=== PATIENT | male | born 1990 | race Caucasian/White ===

== ENCOUNTER 2022-06-29 13:38 | Outpatient (CLI) | payer OTHER, SELFPAY ==
[2022-06-29 20:00] LABS: Alanine Aminotransferase 44 U/L (6-50); Albumin Level 4.8 g/dL (3.5-5.1); Alkaline Phosphatase 68 U/L (38-126); Anion Gap 12 mmol/L (8-16); Aspartate Amino Transferase 65 U/L (17-59); Bilirubin,Total 0.7 mg/dL (0.2-1.3); Blood Urea Nitrogen 10 mg/dL (9-20); Calcium 9.2 mg/dL (8.4-10.2); Carbon Dioxide 27 mmol/L (22-30); Chloride 102 mmol/L (98-107); Cholesterol 225 mg/dL (0-200); Estimated Glomerular Filt Rate > 60; Glucose 125 mg/dL (65-110); HDL Direct 44 mg/dL; Potassium 4.2 mmol/L (3.4-5.0); Sodium 141 mmol/L (137-145); Triglycerides 109 mg/dL (<150)
[2022-06-29 20:11] LABS: LDL Cholesterol Direct 143 mg/dL
[2022-06-29 20:19] LABS: Basophils Percent Auto 0.5 % (0.2-1.2); Eosinophils Absolute Auto 0.1 K/mm3 (0-0.3); Eosinophils Percent Auto 0.8 % (0-4.4); Hemoglobin 15.7 g/dL (14.0-18.0); Immature Granulocyte Absolute 0.01 K/mm3 (0.00-0.031); Immature Granulocyte Percent A 0.2 % (0-0.5); Lymphocytes Absolute Auto 2.06 K/mm3 (0.9-3.2); Lymphocytes Percent Auto 33.4 % (18.3-44.2); Mean Corpuscular HGB Conc 33.4 g/dl (32-36); Mean Corpuscular Volume 83.8 fl (80-100); Mean Platelet Volume 11.5 fl (7.4-10.4); Monocytes Absolute Auto 0.4 K/mm3 (0.1-0.6); Monocytes Percent Auto 5.7 % (2.6-8.5); Neutrophils Absolute Auto 3.7 K/mm3 (1.3-6.7); Neutrophils Percent Auto 59.4 % (45.5-73.1); Platelet Count Result 247 k/mm3 (150-375); Red Blood Count 5.61 M/mm3 (4.6-6.20); Red Cell Distribution Width 12.6 % (11.5-14.5); White Blood Count 6.2 K/mm3 (4.5-10.0)
[2022-06-29 20:24] LABS: Vitamin D 25 Hydroxy 57.4 ng/mL
[2022-07-02 10:55] LABS: Testosterone Total 195 ng/dL (250-1100)
== END 2022-06-29 13:39 | disposition home or self-care (01) ==
LOC: ANHGOSHLAB 13:40
PROVIDERS: PCP Family Medicine; Visit Provider Nurse Practitioner
DX: Z00.00 Encounter for general adult medical examination without abnormal findings (principal); Z79.899 Other long term (current) drug therapy; R53.83 Other fatigue; E78.2 Mixed hyperlipidemia; E55.9 Vitamin D deficiency, unspecified; R73.9 Hyperglycemia, unspecified
CPT/HCPCS: 36415; 80053; 80061; 82306; 83036; 84403; 84443; 85025

== ENCOUNTER 2023-07-05 10:01 | Outpatient (CLI) | payer OTHER, SELFPAY ==
[2023-07-05 18:26] LABS: Basophils Percent Auto 0.6 % (0.2-1.2); Eosinophils Absolute Auto 0.1 K/mm3 (0-0.3); Eosinophils Percent Auto 0.8 % (0-4.4); Hematocrit 53.6 % (42.0-52.0); Hemoglobin 17.4 g/dL (14.0-18.0); Immature Granulocyte Absolute 0.02 K/mm3 (0.00-0.031); Immature Granulocyte Percent A 0.3 % (0-0.5); Lymphocytes Absolute Auto 1.65 K/mm3 (0.9-3.2); Lymphocytes Percent Auto 25.6 % (18.3-44.2); Mean Corpuscular HGB Conc 32.5 g/dl (32-36); Mean Corpuscular Hemoglobin 28.9 pg (26-34); Mean Platelet Volume 11.7 fl (7.4-10.4); Monocytes Absolute Auto 0.4 K/mm3 (0.1-0.6); Monocytes Percent Auto 6.8 % (2.6-8.5); Neutrophils Absolute Auto 4.2 K/mm3 (1.3-6.7); Neutrophils Percent Auto 65.9 % (45.5-73.1); Platelet Count Result 201 k/mm3 (150-375); Red Blood Count 6.02 M/mm3 (4.6-6.20); Red Cell Distribution Width 12.9 % (11.5-14.5); White Blood Count 6.4 K/mm3 (4.5-10.0)
[2023-07-05 19:25] LABS: Alanine Aminotransferase 37 U/L (6-50); Albumin Level 4.7 g/dL (3.5-5.1); Alkaline Phosphatase 57 U/L (38-126); Anion Gap 9 mmol/L (8-16); Aspartate Amino Transferase 47 U/L (17-59); Bilirubin,Total 0.9 mg/dL (0.2-1.3); Blood Urea Nitrogen 14 mg/dL (9-20); Calcium 9.3 mg/dL (8.4-10.2); Carbon Dioxide 29 mmol/L (22-30); Chloride 103 mmol/L (98-107); Cholesterol 239 mg/dL (0-200); Estimated Glomerular Filt Rate > 60; Glucose 86 mg/dL (65-110); HDL Direct 73 mg/dL; Potassium 4.3 mmol/L (3.4-5.0); Sodium 141 mmol/L (137-145); Triglycerides 123 mg/dL (<150)
[2023-07-05 19:36] LABS: LDL Cholesterol Direct 117 mg/dL
[2023-07-08 13:14] LABS: Vitamin D 1,25 (OH)2 Total 76 pg/mL (18-72); Vitamin D2 1,25 (OH)2 <8 pg/mL; Vitamin D3 1,25 (OH)2 76 pg/mL
[2023-07-08 13:51] LABS: Testosterone Total 415 ng/dL (250-1100)
== END 2023-07-05 10:02 | disposition home or self-care (01) ==
LOC: ANHGOSHLAB 10:02
PROVIDERS: PCP Family Medicine; Visit Provider Nurse Practitioner Family
DX: Z00.00 Encounter for general adult medical examination without abnormal findings (principal); E78.5 Hyperlipidemia, unspecified; E55.9 Vitamin D deficiency, unspecified; R79.89 Other specified abnormal findings of blood chemistry
CPT/HCPCS: 36415; 80053; 80061; 82652; 84402; 84403; 84443; 85025

== ENCOUNTER 2024-04-27 14:42 | Outpatient (CLI) | payer OTHER, SELFPAY ==
[2024-04-27 19:16] LABS: LDL Cholesterol Direct 215 mg/dL
[2024-04-27 19:35] LABS: HDL Direct 63 mg/dL; Triglycerides 123 mg/dL (<150)
[2024-04-27 21:36] LABS: Cholesterol 345 mg/dL (0-200)
== END 2024-04-27 14:43 | disposition home or self-care (01) ==
LOC: ANHGOSHLAB 14:44
PROVIDERS: PCP Family Medicine; Visit Provider Student in an Organized Health Care Education/Training Program
DX: E78.5 Hyperlipidemia, unspecified (principal)
CPT/HCPCS: 36415; 80061

== ENCOUNTER 2025-07-31 11:51 | Emergency (ER) | payer OTHER, SELFPAY ==
--- NOTE | ~2025-07-31 | XR_ITS ---
Examination: XR chest 2V Clinical History: cough 1 wk, rales on expiration, SOB, congestion, headache Comparison: None Technique: PA and Lateral Findings: Cardiomediastinal silhouette normal size and configuration. Lungs clear. Calcified granuloma left upper lobe. No acute bony abnormality. IMPRESSION: 1. No acute cardiopulmonary findings. Reviewed, dictated and finalized at location R.
[2025-07-31 12:01] VITALS: BP 117/85; PULSE 87; RESP 16; TEMP 36.7; O2SAT 99
--- NOTE | 2025-07-31 12:14 | ED.URI ---
HPI - URI/Sore Throat General Chief Complaint: Upper Respiratory Infection Stated Complaint: Cold Symptoms Time Seen by Provider: 07/31/25 12:14 Source: patient Mode of arrival: ambulatory Limitations: no limitations History of Present Illness HPI Narrative: 35 yo M presents with c/o cough for over a week. Reports SOB with exertion, chest congestion and rattling. Afebrile. +fatigue and bodyaches. Concerned for pneumonia. States daughter has had similar cough. Took abx and she is still not better. All systems reviewed and negative except as noted above. Related Data Allergies Allergy/AdvReac Type Severity Reaction Status Date / Time No Known Allergies Allergy Verified 07/31/25 11:57 PMFSH Past Medical History Medical History Seasonal allergies Generalized anxiety disorder Mixed dyslipidemia Family History Family History Father Family history of cardiovascular disease Grandparent Family history of cardiovascular disease Social History Social History Smoking status: Current some day smoker Tobacco type: cigarettes Additional smoking assessment comments: Patient reports smoking when drinking socially. Alcohol intake: current Drinks per week: 4 Alcohol use details: occasionally Substance use: never Substance use type: does not use Lack of Transportation: No Lack of Food: Never True Current Housing: I Have Housing Concerned About Future Housing: No Difficulty Paying Gas/Electric Bills: No Difficulty Paying for Meds: No Currently Unemployed: No Education: Bachelor's Degree Difficulty w/ Childcare or Family Care: No Living arrangements: with family Occupation/Education: occupation Additional occupation/education comments: Pharmaceutical Rep Gender identity (if verbalized by the patient): Male Sexual Orientation (if Verbalized by the Patient): Straight or Heterosexual Agree to blood products: Yes Comments At time of signature, agree with nursing past medical, surgical, social and family history. There is no relevant family history pertinent to the presenting complaint. Exam Narrative: GENERAL: This is a well-nourished, well-developed patient, in no apparent distress. HEAD: normocephalic, atraumatic. EYES: PERRL. Sclera clear/white. Vision is grossly intact. EARS: External ears normal, auditory canals clear and without drainage, TMs normal without perforation. Hearing grossly intact. NOSE: External nose normal with no obvious nasal discharge, nares without redness, no rhinorrhea. THROAT: Mucous membranes moist, posterior pharynx clear. NECK: Neck supple, non-tender without lymphadenopathy, masses or thyromegaly. CARDIOVASCULAR: Regular rate and rhythm without murmurs, gallops, or rubs. RESPIRATORY: Mild inspiratory wheeze throughout all lung traore, rhonchi and rales on expiration. No respiratory distress. Breath sounds equal bilaterally. SKIN: warm, Dry, intact with no suspicious lesions or rash, good texture and turgor. NEURO: awake, alert, and oriented to person, place and time. There were no obvious focal neurologic abnormalities. EXTREMITIES: No joint tenderness, effusion, or edema noted. Course Course Level of Care: Express Care Visit Reevaluation(s) Reevaluation #1: Reports no improvement after DuoNeb. Lung sounds remain the same. No respiratory distress. Vital Signs Vital signs: Vital Signs Temperature 36.7 C 07/31/25 12:01 Pulse Rate 87 07/31/25 12:01 Respiratory Rate 16 07/31/25 12:01 Blood Pressure 117/85 07/31/25 12:01 Pulse Oximetry 99 07/31/25 12:01 Temperature 36.7 C 07/31/25 12:01 Pulse Rate 87 07/31/25 12:01 Respiratory Rate 16 07/31/25 12:01 Blood Pressure 117/85 07/31/25 12:01 Pulse Oximetry 99 07/31/25 12:01 Reviewed MDM - URI/Sore Throat MDM Narrative Medical decision making narrative: Chest x-ray negative for pneumonia. Will treat with prednisone, albuterol inhaler for bronchitis. Patient voiced understanding. Patient well-appearing, nontoxic. Differential Diagnosis Differential diagnosis: Likely upper respiratory infection, sinusitis, viral infection and bronchitis Discharge Plan Discharge Clinical Impression: Acute bronchitis Patient Disposition: Home Condition: Stable Instructions: Acute Bronchitis (ED) Additional Instructions: Your chest x-ray was negative for pneumonia. Take medications as prescribed to treat bronchitis. Take [id number] Mucinex as directed on packaging. Bronchitis is viral and may cause a cough that can last up to 6 weeks. Drink at least 64 oz of water a day. See your doctor if symptoms are not improving. Patient Language: Yi Prescriptions: New albuterol sulfate 90 mcg/actuation HFA aerosol inhaler 2 puff inhalation Q4-6H PRN (Reason: shortness of breath or wheezing) Qty: 8.5 0RF (DME) Aerochamber Plus Z Stat Spacer See Rx Instructions .Route Qty: 1 0RF Rx Instructions: As directed benzonatate 200 mg capsule 200 mg PO TID PRN (Reason: cough) Qty: 20 0RF prednisone 20 mg tablet 40 mg PO DAILY 5 Days Qty: 10 0RF No Action dextroamphetamine-amphetamine [Adderall XR] 10 mg capsule,extended release 24hr 10 mg PO DAILY Qty: 30 0RF fluoxetine 40 mg capsule 40 mg PO DAILY Qty: 90 1RF rosuvastatin 40 mg tablet 40 mg PO QHS Qty: 90 1RF Follow-up/Referrals: PHYSICIAN,CASH REGISTER OPERATOR [Primary Care Provider, Internal Medicine] Time of Disposition: 13:34
[2025-07-31] MEDS: IPRATROPIUM 0.5 MG/ALBUTEROL SULFATE 2.5 MG (BASE) AMPUL.NEB 3 ML INHALATION (12:36)
== END 2025-07-31 13:38 | disposition home or self-care (01) ==
PROVIDERS: Emergency Provider Nurse Practitioner Family
DX: J20.9 Acute bronchitis, unspecified (principal); Z72.0 Tobacco use; E78.2 Mixed hyperlipidemia; F41.1 Generalized anxiety disorder
CPT/HCPCS: 71046; 94640; 99213; G0463

== ENCOUNTER 2025-09-19 08:53 | Outpatient (CLI) | payer OTHER, SELFPAY ==
--- OUTSIDE RECORDS SUMMARY | 2025-09-19 09:14 | XMS_ITS | Patient Health Record ---
Author Organization [facility] [employer] Address [address] [facility] [address] [place] [address] Care Team Providers Care Pet Sitting Name Role Phone Day Cortes [phone] Allergies No Known Allergies Reason For Referral No Information Medications Medication SIG (Take, Route, Frequency, Duration) Notes Start Date End Date Status Amphetamine-Dextroamphetami ne 10 MG Tablet 1 tablet Orally Twice a day Unknown Rosuvastatin Calcium 40 MG Tablet 1 tablet Orally Once a day Unknown FLUoxetine HCl 40 MG Capsule 1 capsule Orally Once a day Unknown Social History Tobacco Use: Social History Observation Description Date Details (start date - stop date) Light tobacco rosalba judgeker 10/03/2005 - NA Sex Assigned At : Social History Observation Description Sex Assigned At Male Social History Miscellaneous: Social Info Question Answer Notes Safety issues: Are there any firearms in the house? No Social History Social Info Question Answer Notes Household: Marital Status: Number of Adults in household: 1 Number of Children in Household: 3 Level of Education: Finished College Household: Social Info Question Answer Notes Household Marital status: Drug/Alcohol: Social Info Question Answer Notes Drugs Have you used drugs other than those for medical reasons in the past 12 months? Yes Methamphetamine? No Crack? No LSD? No Ecstacy? No Prescription opiates? No Marijuana? Yes Ketamine? No PCP? No Is there a minor (18 years or younger) at risk at home? No Are you still using? No AUDIT-C (Standard) Did you have a drink containi ng alcohol in the past year? Yes How often did you have six or more drinks on one occasion in the past year? 2 to 4 times a month (2 points) How many drinks did you have on a typical day when you were drinking in the past year? 5 or 6 drinks (2 points) How often did you have a drink containing alcohol in the past year? 2 to 3 times a week (3 points) Tobacco Use: Social Info Question Answer Notes Tobacco Control (Standard) Tobacco use: Light tobacco smoker When did you start smoking? 10/03/2005 Additional Details Category Social Info Options Details Miscellaneous: Occupation: [employer] Problems Problem Type SNOMED Code ICD Code Onset Dates Problem Status W/U Status Risk Notes Problem Mild recurrent major depression (61345624) Major depressive disorder, recurrent, mild (F33.0) Active confirmed Problem Severe recurrent major depression without psychotic features (90840851) Major depressive disorder, recurrent severe without psychotic features (F33.2) Active confirmed Problem Generalized anxiety disorder (67401261) Generalized anxiety disorder (F41.1) Active confirmed Problem Attention deficit hyperactivity disorder, predominantly inattentive type (13887905) Attention-defic it hyperactivity disorder, predominantly inattentive type (F90.0) Active confirmed Previously diagnosed Problem Feeling suicidal (433953213) Suicidal ideations (R45.851) Active confirmed Vital Signs Heart Rate 77 /min 05/24/2025 Blood pressure diastolic 68 mm Hg 05/24/2025 Blood pressure systolic 99 mm Hg 05/24/2025 Encounters Encounter Location Date Provider Diagnosis [employer] [address] [facility] [address] [place] [address] 05/24/2025 Daykady Paradaliter Major depressive disorder, recurrent severe without psychotic features F33.2 ; Generalized anxiety disorder F41.1 ; Attention-deficit hyperactivity disorder, predominantly inattentive type F90.0 and Suicidal ideations R45.851 [employer] [facility] [address] [place] [address] 05/29/2025 Daykady Paradaliter Major depressive disorder, recurrent severe without psychotic features F33.2 ; Generalized anxiety disorder F41.1 ; Attention-deficit hyperactivity disorder, predominantly inattentive type F90.0 and Suicidal ideations R45.851 [employer] [facility] [address] [place] [address] 06/04/2025 Daykady Paradaliter Major depressive disorder, recurrent severe without psychotic features F33.2 ; Generalized anxiety disorder F41.1 ; Attention-deficit hyperactivity disorder, predominantly inattentive type F90.0 and Problems in relationship with spouse or partner Z63.0 [employer] [address] [place] [place] [address] 06/10/2025 Day Karmaliter Generalized anxiety disorder F41.1 ; Major depressive disorder, recurrent severe without psychotic features F33.2 ; Attention-deficit hyperactivity disorder, predominantly inattentive type F90.0 and Problems in relationship with spouse or partner Z63.0 [facility], [facility] [address] [place] [address] 06/17/2025 Day Karmaliter Major depressive disorder, recurrent severe without psychotic features F33.2 ; Problems in relationship with spouse or partner Z63.0 ; Generalized anxiety disorder F41.1 and Attention-deficit hyperactivity disorder, predominantly inattentive type F90.0 [facility], [facility] [address] [address] [place] [address] 06/24/2025 Daykady Paradaliter Generalized anxiety disorder F41.1 ; Major depressive disorder, recurrent, mild F33.0 ; Attention-deficit hyperactivity disorder, predominantly inattentive type F90.0 and Problems in relationship with spouse or partner Z63.0 [facility], [facility] [address] [place] [address] 07/09/2025 Daykady Paradaliter Generalized anxiety disorder F41.1 ; Major depressive disorder, recurrent, mild F33.0 ; Problems in relationship with spouse or partner Z63.0 and Attention-deficit hyperactivity disorder, predominantly inattentive type F90.0 [facility], [facility] [address] [place] [address] 07/16/2025 Day Hinderliter Major depressive disorder, recurrent, mild F33.0 ; Generalized anxiety disorder F41.1 ; Attention-deficit hyperactivity disorder, predominantly inattentive type F90.0 and Problems in relationship with spouse or partner Z63.0 [facility], [facility] [address] [place] [address] 07/23/2025 Day Hinderliter Generalized anxiety disorder F41.1 ; Problems in relationship with spouse or partner Z63.0 ; Major depressive disorder, recurrent, mild F33.0 and Attention-deficit hyperactivity disorder, predominantly inattentive type F90.0 [facility], [facility] [address] [place] [address] 07/31/2025 Daykady Paradaliter Generalized anxiety disorder F41.1 ; Major depressive disorder, recurrent, mild F33.0 and Problems in relationship with spouse or partner Z63.0 [facility] [employer] [facility], [facility] [address] [place] [address] 08/07/2025 Day Karmaliter Generalized anxiety disorder F41.1 ; Major depressive disorder, recurrent, mild F33.0 and Attention-deficit hyperactivity disorder, predominantly inattentive type F90.0 [facility] [employer] [facility], [facility] [address] [place] [address] 08/13/2025 Day Hinderliter Attention-deficit hyperactivity disorder, predominantly inattentive type F90.0 ; Generalized anxiety disorder F41.1 ; Major depressive disorder, recurrent, mild F33.0 and Problems in relationship with spouse or partner Z63.0 [facility] [employer] [facility], [employer] [address] [place] [address] 08/26/2025 Day Karmaliter Generalized anxiety disorder F41.1 ; Attention-deficit hyperactivity disorder, predominantly inattentive type F90.0 and Major depressive disorder, recurrent, mild F33.0 [facility] [employer] [facility], [employer] [address] [place] [address] 09/03/2025 Day Hinderliter Attention-deficit hyperactivity disorder, predominantly inattentive type F90.0 ; Major depressive disorder, recurrent, mild F33.0 and Generalized anxiety disorder F41.1 [facility] [employer] [facility], [facility] [address] [place] [address] 09/10/2025 Day Hinderliter Generalized anxiety disorder F41.1 ; Major depressive disorder, recurrent, mild F33.0 and Attention-deficit hyperactivity disorder, predominantly inattentive type F90.0 [facility] [employer] [facility], [employer] [address] [place] [address] 09/17/2025 Day Hinderliter Attention-deficit hyperactivity disorder, predominantly inattentive type F90.0 ; Generalized anxiety disorder F41.1 and Major depressive disorder, recurrent, mild F33.0 [facility] [employer] [facility] [address] [place] [address] 07/03/2025 Day Hinderliter Assessments Encounter Date Diagnosis (ICD Code) Assessment Notes Treatment Notes Treatment Clinical Notes Section Notes 05/29/2025 Major depressive disorder, recurrent severe without psychotic features (ICD-10 - F33.2) Anxiety Assessment: Patient reports ongoing anxiety symptoms, describing them as really bad and feeling it physically in his body. He finds it destabilizing. Previous coping mechanisms like sports are no longer part of his routine. Patient has attempted breathing exercises, which help prevent escalation but do not fully alleviate anxiety. Physical exercise, specifically running on a treadmill, was reported as helpful in managing acute anxiety triggered by a recent encounter with his girlfriend. Client was also able to identify his mom, aunt, and a friend as support during this time. Plan: - Continue practicing breathing exercises for anxiety management - Encourage regular physical exercise, particularly cardiovascular activities like running, to manage anxiety and burn off excess adrenaline - Follow up with nurse practitioner tomorrow to discuss medication options Unresolved grief Assessment: Patient expresses need to address unresolved grief over his father's . He reports not having properly grieved due to focusing on comforting others and helping his mother with logistics. The recent anniversary of his father's has brought these feelings to the forefront. Patient identifies his father as a trusted confidant, and his absence is acutely felt during current life stressors. Plan: - Provide information on local grief support groups: - [facility]: offers individual and group therapy specifically for grief - [facility]: another organization offering grief support - Encourage patient to engage with grief support resources Relationship difficulties Assessment: Patient describes his current relationship with his girlfriend, who is with their child, as toxic. He reports constant criticism from her and feeling blamed for all conflicts. Recent separation occurred when girlfriend moved out for nearly two weeks. Patient expresses concern about potential personality disorder in his girlfriend but is unsure if he might be the source of issues. He reports walking on eggshells to avoid upsetting her and mentions her threats to leave if his behavior doesn't change. Patient has a history of divorce and is concerned about the impact on his children. Plan: - Encourage patient to discuss with girlfriend about her staying elsewhere temporarily to create space - Provide supportive counseling on co-parenting strategies and setting boundaries in relationships - Continue to explore and process relationship dynamics in future sessions 05/29/2025 Generalized anxiety disorder (ICD-10 - F41.1) Anxiety Assessment: Patient reports ongoing anxiety symptoms, describing them as really bad and feeling it physically in his body. He finds it destabilizing. Previous coping mechanisms like sports are no longer part of his routine. Patient has attempted breathing exercises, which help prevent escalation but do not fully alleviate anxiety. Physical exercise, specifically running on a treadmill, was reported as helpful in managing acute anxiety triggered by a recent encounter with his girlfriend. Client was also able to identify his mom, aunt, and a friend as support during this time. Plan: - Continue practicing breathing exercises for anxiety management - Encourage regular physical exercise, particularly cardiovascular activities like running, to manage anxiety and burn off excess adrenaline - Follow up with nurse practitioner tomorrow to discuss medication options Unresolved grief Assessment: Patient expresses need to address unresolved grief over his father's . He reports not having properly grieved due to focusing on comforting others and helping his mother with logistics. The recent anniversary of his father's has brought these feelings to the forefront. Patient identifies his father as a trusted confidant, and his absence is acutely felt during current life stressors. Plan: - Provide information on local grief support groups: - [facility]: offers individual and group therapy specifically for grief - [facility]: another organization offering grief support - Encourage patient to engage with grief support resources Relationship difficulties Assessment: Patient describes his current relationship with his girlfriend, who is with their child, as toxic. He reports constant criticism from her and feeling blamed for all conflicts. Recent separation occurred when girlfriend moved out for nearly two weeks. Patient expresses concern about potential personality disorder in his girlfriend but is unsure if he might be the source of issues. He reports walking on eggshells to avoid upsetting her and mentions her threats to leave if his behavior doesn't change. Patient has a history of divorce and is concerned about the impact on his children. Plan: - Encourage patient to discuss with girlfriend about her staying elsewhere temporarily to create space - Provide supportive counseling on co-parenting strategies and setting boundaries in relationships - Continue to explore and process relationship dynamics in future sessions 06/10/2025 Major depressive disorder, recurrent severe without psychotic features (ICD-10 - F33.2) Relationship Conflict Assessment: Darius reports ongoing conflict with his girlfriend, Ghada, primarily centered around his children's behavior and her expectations for change. The relationship demonstrates a pattern of instability over the past 1.5-2 years, with periods of harmony followed by threats of separation. Ghada's has intensified the conflict, as she expresses concerns about exposing a to the perceived chaos of Darius's children. Darius feels his girlfriend's expectations may be unrealistic and her approach to addressing issues is often critical and threatening. This situation is causing significant stress and contributing to Darius's feelings of being overwhelmed. Plan: - Explore setting healthy boundaries within the relationship - Discuss strategies for effective communication with partner about parenting concerns - Consider couples counseling to address relationship issues and prepare for co-parenting Parenting Challenges Assessment: Darius is experiencing some difficulties managing his children's behavior, particularly with his 9-year-old daughter who is exhibiting defiance and anger issues. He has implemented a point system for discipline but is facing criticism from his girlfriend regarding the effectiveness of his parenting approach. Darius's 12-year-old son is also described as forgetful and defiant, with a prescription medication regimen in place for ADHD. Darius expresses a desire to avoid harsh disciplinary tactics, recognizing their potential to increase anxiety in his children. He acknowledges feeling overwhelmed by the multiple demands of parenting and the conflicting expectations from his girlfriend. Plan: - Continue implementing and refining the point system for behavior management - Explore alternative parenting strategies that align with Darius's values and address children's needs - Provide education on age-appropriate behavior and developmental stages - Discuss ways to manage multiple demands and reduce feelings of being overwhelmed Emotional Regulation and Stress Management Assessment: Darius reports feeling frequently overwhelmed, particularly when faced with multiple simultaneous demands from his children, girlfriend, and others. He describes experiencing a gamez-zv-rozefd response in these situations, leading to raised voice and increased stress. Darius notes a alejandre contrast between his emotional state during a recent positive experience in [place] and his typical home environment. He has insight into his reactions and recognizes the need for better coping strategies. There is a possibility that his ADHD diagnosis may contribute to his feelings of being overstimulated and overwhelmed. Plan: - Teach and practice stress reduction techniques - Explore strategies for managing overstimulation and multiple demands - Discuss the potential impact of ADHD on emotional regulation and explore coping mechanisms - Encourage identification and cultivation of positive environmental factors Financial Stressors Assessment: Darius is experiencing financial stress related to alimony payments, property sale, and changing income. 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 Darius is anticipating the sale of a property to alleviate some financial pressure, allowing him to pay off his ex-'s loan. He expresses a need to return to court to address the alimony situation. These financial concerns are contributing to his overall stress and feelings of being overwhelmed. Plan: - Assist in prioritizing financial obligations and creating a manageable plan - Provide support in preparing for court appearance regarding alimony adjustment - Explore coping strategies for managing financial stress - Consider referral to financial counseling or legal services if needed 06/10/2025 Generalized anxiety disorder (ICD-10 - F41.1) Relationship Conflict Assessment: Darius reports ongoing conflict with his girlfriend, Ghada, primarily centered around his children's behavior and her expectations for change. The relationship demonstrates a pattern of instability over the past 1.5-2 years, with periods of harmony followed by threats of separation. Ghada's has intensified the conflict, as she expresses concerns about exposing a to the perceived chaos of Darius's children. Darius feels his girlfriend's expectations may be unrealistic and her approach to addressing issues is often critical and threatening. This situation is causing significant stress and contributing to Darius's feelings of being overwhelmed. Plan: - Explore setting healthy boundaries within the relationship - Discuss strategies for effective communication with partner about parenting concerns - Consider couples counseling to address relationship issues and prepare for co-parenting Parenting Challenges Assessment: Darius is experiencing some difficulties managing his children's behavior, particularly with his 9-year-old daughter who is exhibiting defiance and anger issues. He has implemented a point system for discipline but is facing criticism from his girlfriend regarding the effectiveness of his parenting approach. Darius's 12-year-old son is also described as forgetful and defiant, with a prescription medication regimen in place for ADHD. Darius expresses a desire to avoid harsh disciplinary tactics, recognizing their potential to increase anxiety in his children. He acknowledges feeling overwhelmed by the multiple demands of parenting and the conflicting expectations from his girlfriend. Plan: - Continue implementing and refining the point system for behavior management - Explore alternative parenting strategies that align with Darius's values and address children's needs - Provide education on age-appropriate behavior and developmental stages - Discuss ways to manage multiple demands and reduce feelings of being overwhelmed Emotional Regulation and Stress Management Assessment: Darius reports feeling frequently overwhelmed, particularly when faced with multiple simultaneous demands from his children, girlfriend, and others. He describes experiencing a oppzk-ra-rgzllw response in these situations, leading to raised voice and increased stress. Darius notes a alejandre contrast between his emotional state during a recent positive experience in [place] and his typical home environment. He has insight into his reactions and recognizes the need for better coping strategies. There is a possibility that his ADHD diagnosis may contribute to his feelings of being overstimulated and overwhelmed. Plan: - Teach and practice stress reduction techniques - Explore strategies for managing overstimulation and multiple demands - Discuss the potential impact of ADHD on emotional regulation and explore coping mechanisms - Encourage identification and cultivation of positive environmental factors Financial Stressors Assessment: Darius is experiencing financial stress related to alimony payments, property sale, and changing income. 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 Darius is anticipating the sale of a property to alleviate some financial pressure, allowing him to pay off his ex-'s loan. He expresses a need to return to court to address the alimony situation. These financial concerns are contributing to his overall stress and feelings of being overwhelmed. Plan: - Assist in prioritizing financial obligations and creating a manageable plan - Provide support in preparing for court appearance regarding alimony adjustment - Explore coping strategies for managing financial stress - Consider referral to financial counseling or legal services if needed 06/24/2025 Major depressive disorder, recurrent, mild (ICD-10 - F33.0) Emotional dysregulation and anger management Assessment: Darius reports living in a prolonged state of ifrlh-xe-aweqor, struggling to regulate between stress and calm, particularly in relationships. He acknowledges taking out stress on those closest to him, which has affected his past marriage and current relationships. Darius's difficulty in managing stress and emotions appears to be impacting multiple areas of his life, including parenting and romantic relationships. Plan: - Implement TIP (Temperature, Intense exercise, Paced breathing, Paired muscle relaxation) technique to shift from lzyzd-xf-pwziqq to bdeq-yif-zzhkep state - Encourage use of the dive reflex (holding breath with cold stimulus) to slow heart rate and blood pressure - Explore possibility of joining a bicycle club for consistent, intense physical activity - Practice grounding techniques: - 5-4-3-2-1 method using all five senses - Mental exercises (e.g., counting backwards, spelling name backwards) - Body awareness exercises - Physical grounding (e.g., walking barefoot on grass) - Utilize laughter as a relaxation technique Time management and task overwhelm (possibly related to ADHD) Assessment: Darius reports significant difficulties with time management, often taking on more tasks than he can handle, leading to feelings of being overwhelmed and burnt out. He struggles with maintaining schedules and completing basic tasks, such as cleaning his car. Darius mentions a previous ADD diagnosis and notes that medication initially helped. His current symptoms, including difficulty initiating tasks and managing multiple responsibilities, are consistent with executive function challenges often associated with ADHD. These difficulties are impacting his work, personal life, and ability to care for his children effectively. Plan: - Implement pacing technique: 60 minutes of work followed by 10-15 minute breaks, with longer breaks after four cycles - Encourage use of timers to manage work periods and breaks - Recommend planning by time allocation rather than task completion to reduce overwhelm - Suggest using a random number generator to select tasks from a list to overcome decision paralysis - Advise setting phone to Do Not Disturb mode during focused work periods, with exceptions for emergency contacts - Start with scheduling two focused work periods per day (one morning, one afternoon) and gradually increase as tolerated - Explore the use of a calendar system for improved time management and task organization Relationship and living situation adjustment Assessment: Darius reports recent changes in his living situation, with his girlfriend deciding to move out due to the chaotic environment of living together with three children. They plan to continue dating while living separately, hoping this step back will allow them to work on individual issues. This adjustment reflects ongoing challenges in Darius's interpersonal relationships, likely influenced by his emotional regulation difficulties and time management struggles. Plan: - Support Darius in adapting to the new living arrangement and relationship dynamic - Encourage open communication with girlfriend about expectations and boundaries in the new situation - Explore strategies for maintaining connection while living separately (e.g., scheduled date nights, regular check-ins) - Continue to address underlying emotional regulation and time management issues to improve relationship functioning 06/24/2025 Generalized anxiety disorder (ICD-10 - F41.1) Emotional dysregulation and anger management Assessment: Darius reports living in a prolonged state of [id number], struggling to regulate between stress and calm, particularly in relationships. He acknowledges taking out stress on those closest to him, which has affected his past marriage and current relationships. Darius's difficulty in managing stress and emotions appears to be impacting multiple areas of his life, including parenting and romantic relationships. Plan: - Implement TIP (Temperature, Intense exercise, Paced breathing, Paired muscle relaxation) technique to shift from [id number] to [id number] state - Encourage use of the dive reflex (holding breath with cold stimulus) to slow heart rate and blood pressure - Explore possibility of joining a bicycle club for consistent, intense physical activity - Practice grounding techniques: - 5-4-3-2-1 method using all five senses - Mental exercises (e.g., counting backwards, spelling name backwards) - Body awareness exercises - Physical grounding (e.g., walking barefoot on grass) - Utilize laughter as a relaxation technique Time management and task overwhelm (possibly related to ADHD) Assessment: Darius reports significant difficulties with time management, often taking on more tasks than he can handle, leading to feelings of being overwhelmed and burnt out. He struggles with maintaining schedules and completing basic tasks, such as cleaning his car. Darius mentions a previous ADD diagnosis and notes that medication initially helped. His current symptoms, including difficulty initiating tasks and managing multiple responsibilities, are consistent with executive function challenges often associated with ADHD. These difficulties are impacting his work, personal life, and ability to care for his children effectively. Plan: - Implement pacing technique: 60 minutes of work followed by 10-15 minute breaks, with longer breaks after four cycles - Encourage use of timers to manage work periods and breaks - Recommend planning by time allocation rather than task completion to reduce overwhelm - Suggest using a random number generator to select tasks from a list to overcome decision paralysis - Advise setting phone to Do Not Disturb mode during focused work periods, with exceptions for emergency contacts - Start with scheduling two focused work periods per day (one morning, one afternoon) and gradually increase as tolerated - Explore the use of a calendar system for improved time management and task organization Relationship and living situation adjustment Assessment: Darius reports recent changes in his living situation, with his girlfriend deciding to move out due to the chaotic environment of living together with three children. They plan to continue dating while living separately, hoping this step back will allow them to work on individual issues. This adjustment reflects ongoing challenges in Darius's interpersonal relationships, likely influenced by his emotional regulation difficulties and time management struggles. Plan: - Support Darius in adapting to the new living arrangement and relationship dynamic - Encourage open communication with girlfriend about expectations and boundaries in the new situation - Explore strategies for maintaining connection while living separately (e.g., scheduled date nights, regular check-ins) - Continue to address underlying emotional regulation and time management issues to improve relationship functioning 07/16/2025 Major depressive disorder, recurrent, mild (ICD-10 - F33.0) Emotional dysregulation Assessment: Patient reports significant improvement in emotional regulation since beginning treatment, identifying this as his biggest issue. He has a history of jealousy problems and difficulty controlling emotions in relationships, which has been a pattern across past relationships including his marriage. He describes episodes where overwhelming thoughts require him to lie down due to feeling depressed. Patient demonstrates insight into learned patterns from parents and expresses concern about modeling these behaviors for his children, who witnessed ugly things during his divorce when stability was disrupted. Plan: - Continue current therapeutic interventions for emotional regulation - Patient to write down and bring in any thoughts he questions as realistic for discussion in session Relationship difficulties Assessment: Patient is experiencing significant relationship distress with girlfriend Ghada, who has moved out citing his home as not being a calm environment and is not communicating with him. She prevented him from attending a recent baby appointment after becoming upset that his daughter came down at night and he fell asleep while getting her back to sleep. Patient's mother has expressed concern that this relationship is negatively impacting his self-esteem and confidence. Patient describes Ghada as having mixed attachment patterns - sometimes needing constant contact but avoiding problems, especially when at fault, potentially disorganized attachment. Patient appears to have secure attachment from being raised by loving parents. Plan: - Continue exploring relationship dynamics and attachment patterns in therapy Low self-esteem Assessment: Patient reports struggling with self-worth tied to relationships, experiencing an identity crisis after divorce when he lost his identity as a with children in a nuclear family structure. He is the first in his family to divorce, having grown up with parents who stayed together until father's . Patient expresses worry that something's wrong with me and questions his ability at long-term relationships since he couldn't keep a marriage together. He experiences particular difficulty when alone without his children. Previous therapy addressed trust and jealousy issues related to his divorce, but these concerns have resurfaced. Plan: - Continue addressing cognitive distortions related to self-worth and relationship capabilities - Explore challenging negative thought patterns when they arise ADHD management Assessment: Patient has been successfully implementing a 60-minute focused work strategy, though he reports losing focus on subsequent attempts and has adapted by working in 25-minute intervals with 5-minute breaks. He finds manual labor therapeutic as it keeps him focused on one task at a time. Patient acknowledges that having ADHD affects his perception of what is realistic versus unrealistic expectations. Plan: - Continue 60-minute time-based work strategy with flexibility to adjust to 25-minute intervals as needed - Encourage pacing based on time rather than tasks - Continue once to twice daily implementation of focused work periods 07/16/2025 Generalized anxiety disorder (ICD-10 - F41.1) Emotional dysregulation Assessment: Patient reports significant improvement in emotional regulation since beginning treatment, identifying this as his biggest issue. He has a history of jealousy problems and difficulty controlling emotions in relationships, which has been a pattern across past relationships including his marriage. He describes episodes where overwhelming thoughts require him to lie down due to feeling depressed. Patient demonstrates insight into learned patterns from parents and expresses concern about modeling these behaviors for his children, who witnessed ugly things during his divorce when stability was disrupted. Plan: - Continue current therapeutic interventions for emotional regulation - Patient to write down and bring in any thoughts he questions as realistic for discussion in session Relationship difficulties Assessment: Patient is experiencing significant relationship distress with girlfriend Ghada, who has moved out citing his home as not being a calm environment and is not communicating with him. She prevented him from attending a recent baby appointment after becoming upset that his daughter came down at night and he fell asleep while getting her back to sleep. Patient's mother has expressed concern that this relationship is negatively impacting his self-esteem and confidence. Patient describes Ghada as having mixed attachment patterns - sometimes needing constant contact but avoiding problems, especially when at fault, potentially disorganized attachment. Patient appears to have secure attachment from being raised by loving parents. Plan: - Continue exploring relationship dynamics and attachment patterns in therapy Low self-esteem Assessment: Patient reports struggling with self-worth tied to relationships, experiencing an identity crisis after divorce when he lost his identity as a with children in a nuclear family structure. He is the first in his family to divorce, having grown up with parents who stayed together until father's . Patient expresses worry that something's wrong with me and questions his ability at long-term relationships since he couldn't keep a marriage together. He experiences particular difficulty when alone without his children. Previous therapy addressed trust and jealousy issues related to his divorce, but these concerns have resurfaced. Plan: - Continue addressing cognitive distortions related to self-worth and relationship capabilities - Explore challenging negative thought patterns when they arise ADHD management Assessment: Patient has been successfully implementing a 60-minute focused work strategy, though he reports losing focus on subsequent attempts and has adapted by working in 25-minute intervals with 5-minute breaks. He finds manual labor therapeutic as it keeps him focused on one task at a time. Patient acknowledges that having ADHD affects his perception of what is realistic versus unrealistic expectations. Plan: - Continue 60-minute time-based work strategy with flexibility to adjust to 25-minute intervals as needed - Encourage pacing based on time rather than tasks - Continue once to twice daily implementation of focused work periods 07/09/2025 Major depressive disorder, recurrent, mild (ICD-10 - F33.0) Relationship Stress Assessment: Darius reports ongoing relationship difficulties with his girlfriend, particularly surrounding co-parenting issues and emotional regulation. He describes feeling unsafe in the relationship, often worrying about being in trouble. A recent incident involving comforting his 9-year-old daughter led to conflict with his girlfriend, who subsequently blocked him from attending an OB appointment. Darius expresses concern about the impact of this stress on his overall well-being and ability to function in various life roles. The pattern of intense positive and negative periods in the relationship suggests potential emotional instability or difficulty with conflict resolution. Plan: - Explore healthy relationship dynamics and boundary-setting strategies - Discuss options for addressing recurring relationship conflicts, including potential couples therapy - Encourage continued use of emotional regulation techniques learned in previous sessions - Consider implementing a worry time technique to manage anxiety related to relationship issues Anxiety and Emotional Regulation Assessment: Darius reports ongoing high anxiety that impacts various aspects of his life, including work performance and personal relationships. He has been utilizing emotional regulation techniques learned in therapy, including ice cube grounding and deep breathing exercises. Darius also mentions finding a book on resetting the nervous system helpful. He is currently taking fluoxetine (SSRI) but feels it may not be adequately addressing his anxiety symptoms. Darius demonstrates insight into his anxiety patterns and is actively seeking ways to manage his symptoms. Plan: - Continue practicing emotional regulation techniques, including TIP skills and Kris mind concept from DBT - Encourage regular exercise and physical activity as a means of anxiety management - Discuss potential medication adjustments or alternatives with prescribing physician - Introduce defusion techniques, such as the movie theater visualization - Reinforce the importance of self-care and setting boundaries to manage anxiety in various life roles Time Management and ADHD Symptoms Assessment: Darius continues to struggle with time management and task completion, which he attributes to feeling overwhelmed and possibly related to ADHD symptoms. He reports difficulty adhering to previously discussed time management strategies, such as pacing himself and using timers. Darius also mentions challenges with sleep patterns and morning routines, which may be exacerbating his time management issues. Plan: - Revisit and modify time management strategies to better suit Darius's needs and lifestyle - Explore ADHD-specific coping strategies and organizational tools - Discuss establishing a consistent sleep schedule and morning routine - Encourage Darius to start with small, achievable goals in implementing new time management techniques 07/09/2025 Generalized anxiety disorder (ICD-10 - F41.1) Relationship Stress Assessment: Darius reports ongoing relationship difficulties with his girlfriend, particularly surrounding co-parenting issues and emotional regulation. He describes feeling unsafe in the relationship, often worrying about being in trouble. A recent incident involving comforting his 9-year-old daughter led to conflict with his girlfriend, who subsequently blocked him from attending an OB appointment. Darius expresses concern about the impact of this stress on his overall well-being and ability to function in various life roles. The pattern of intense positive and negative periods in the relationship suggests potential emotional instability or difficulty with conflict resolution. Plan: - Explore healthy relationship dynamics and boundary-setting strategies - Discuss options for addressing recurring relationship conflicts, including potential couples therapy - Encourage continued use of emotional regulation techniques learned in previous sessions - Consider implementing a worry time technique to manage anxiety related to relationship issues Anxiety and Emotional Regulation Assessment: Darius reports ongoing high anxiety that impacts various aspects of his life, including work performance and personal relationships. He has been utilizing emotional regulation techniques learned in therapy, including ice cube grounding and deep breathing exercises. Darius also mentions finding a book on resetting the nervous system helpful. He is currently taking fluoxetine (SSRI) but feels it may not be adequately addressing his anxiety symptoms. Darius demonstrates insight into his anxiety patterns and is actively seeking ways to manage his symptoms. Plan: - Continue practicing emotional regulation techniques, including TIP skills and Kris mind concept from DBT - Encourage regular exercise and physical activity as a means of anxiety management - Discuss potential medication adjustments or alternatives with prescribing physician - Introduce defusion techniques, such as the movie theater visualization - Reinforce the importance of self-care and setting boundaries to manage anxiety in various life roles Time Management and ADHD Symptoms Assessment: Darius continues to struggle with time management and task completion, which he attributes to feeling overwhelmed and possibly related to ADHD symptoms. He reports difficulty adhering to previously discussed time management strategies, such as pacing himself and using timers. Darius also mentions challenges with sleep patterns and morning routines, which may be exacerbating his time management issues. Plan: - Revisit and modify time management strategies to better suit Darius's needs and lifestyle - Explore ADHD-specific coping strategies and organizational tools - Discuss establishing a consistent sleep schedule and morning routine - Encourage Darius to start with small, achievable goals in implementing new time management techniques 07/23/2025 Problems in relationship with spouse or partner (ICD-10 - Z63.0) Relationship dissolution and boundary setting Assessment: Darius reports significant improvement in emotional well-being following Ghada's departure from his home, describing feeling more free and no longer walking on eggshells. He identifies a pattern of compromising his self-worth and identity in the relationship, noting that constant criticism and lack of accountability from Ghada led to self-doubt about his parenting and life decisions. Darius recognizes narcissistic traits in Ghada's behavior patterns, including lack of accountability, emotional manipulation, silent treatment, and controlling behaviors. He demonstrates increased self-awareness regarding his tendency to tolerate unhealthy relationship dynamics and expresses determination to maintain firmer boundaries. Darius sent a comprehensive text message to Ghada outlining his concerns about accountability, respect, and communication patterns, which provided him emotional closure regardless of her response. He reports feeling strong enough to reject unacceptable behaviors and is questioning how to identify healthier relationship patterns in the future. Plan: - Continue therapy focused on identifying red flags in relationships and maintaining healthy boundaries - Provide handout on how to identify green flags in others - Explore shared values as foundation for future relationships, particularly regarding respect for his role as father and positive interactions with his children - Work on recognizing trauma responses that may manifest as controlling behaviors in potential partners Co-parenting difficulties with ex- Assessment: Darius reports ongoing challenges with his ex-'s chronic lateness and unreliability, which is negatively impacting his 9-year-old daughter Kelly. Recent incident involved ex- being 40 minutes late to picker machine operator Kelly for a planned activity, causing significant distress to the child. Kelly also expressed frustration about her mother's boyfriend's constant presence during their time together, limiting one-on-one mother-daughter interactions. Darius recognizes the need to parent coach his children on communicating their needs to their mother while avoiding speaking negatively about her. He acknowledges the cumulative stress on his children from multiple life transitions including divorce, new relationships, and upcoming half-sibling. Plan: - Practice role-playing exercises with Kelly to help her communicate needs to her mother in calm, non-attacking manner - Teach Kelly self-soothing techniques for managing disappointment when mother is dismissive of her concerns - Continue coaching children on emotional regulation and healthy communication strategies Improved parent-child relationship with daughter Assessment: Darius reports significant improvement in his relationship with 9-year-old daughter Kelly since Ghada's departure. He describes better connection and understanding of Kelly's needs, particularly regarding sleep issues. Darius now feels comfortable allowing Kelly to seek comfort in his room during nighttime awakenings, recognizing this as normal childhood behavior. Both his 8-year-old daughter Naheed and son validated his perception that Ghada complains about everything, providing external confirmation of the relationship dynamics he experienced. Plan: - Continue fostering improved parent-child connection and understanding - Maintain supportive approach to Kelly's sleep-related comfort-seeking behaviors 07/31/2025 Major depressive disorder, recurrent, mild (ICD-10 - F33.0) Co-parenting communication difficulties Assessment: Patient reports significant ongoing stress related to poor communication with his ex- regarding custody arrangements and child exchanges. Ex- has blocked him on almost all communication platforms, requiring him to communicate through their son. Patient describes having to engage in dual planning due to last-minute communication from ex-, including a recent incident where she waited 45 minutes before pickup to confirm timing. Patient reports ex- displays hostile behavior during exchanges, including refusing to allow patient to pet the family dog and insisting on police station meetups for child exchanges. These communication barriers are creating substantial stress and difficulty in managing his parenting responsibilities. Plan: - Patient considering returning to court to address communication issues with ex- - Continue discussing co-parenting strategies and boundary setting in future sessions Lack of emotional support system Assessment: Patient reports feeling unable to express emotions or seek support from the women in his immediate support system, including his mother, sister, ex-, and ex-girlfriend Ghada. Patient describes a pattern where expressing any emotions to women in his life results in them becoming uncomfortable or withdrawing support. Recent incident with mother involved her criticizing patient for complaining about everything and suggesting his communication style contributes to relationship problems. Patient identifies his father as his primary emotional support person and feels he lacks a safe outlet for emotional expression. Patient recognizes this leads to bottling up emotions, which he acknowledges is unhealthy and may contribute to eventual emotional explosions. Plan: - Patient expressed interest in joining a men's support group for post-divorce issues or being a single father - Continue exploring healthy outlets for emotional expression in therapy - Discuss strategies for building appropriate support network co-parenting planning disputes Assessment: Patient attended 20-week ultrasound with ex-girlfriend Ghada, which showed healthy development. Following the appointment, conflicts arose regarding co-parenting arrangements for the expected child. Ghada expects patient to contribute financially to baby shower and nursery items for her home while maintaining they will be co-parenting rather than reuniting as a couple. Patient created a preliminary co-parenting plan using [employer] covering ages 0-12 months, but Ghada disagreed with the proposal, particularly regarding bottle feeding and overnight visits. Patient reports Ghada uses manipulative language suggesting he is not showing up as a father when he refuses to pay for items for her home, which he interprets as attempts to shame him into compliance. Plan: - Patient will maintain firm boundaries regarding financial responsibilities for separate households - Continue developing formal co-parenting plan for expected child - Further discussion of co-parenting strategies planned for next session Rental property management stress Assessment: Patient reports significant stress from preparing rental property for new tenant who has cancer. Communication issues arose when tenant requested early move-in, leading to misunderstanding about timing and scope of move. Patient worked until 4 AM Tuesday night with only 4 hours of sleep, dealing with electrical issues and other property preparations. Patient successfully set boundaries with tenant regarding move-in timeline despite tenant's initial pushback. Patient believes the physical and emotional stress from this situation may have contributed to current respiratory illness. Plan: - Complete work on rental property to decrease stress Family support difficulties Assessment: Patient reports feeling that his children are viewed as a burden by family members, particularly his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 dysfunction. Previous positive response to structured environments (library during unemployment, coffee shops) suggests environmental modifications may be beneficial. Plan: - Continue current medications as prescribed by PCP - Implement environmental modifications including working in coffee shops or other structured environments to create sense of urgency - Trial body doubling technique with in-person or phone presence of another person during task completion - Utilize PINCH acronym motivational framework, particularly focusing on hurry/urgency component - Incorporate regular exercise routine to improve focus and baseline nervous system regulation - Divide daily schedule into focused time blocks for different priorities (work, court preparation, rental project) - Clinician to provide educational handouts on happy chemicals and PINCH framework at next session Task prioritization difficulties Assessment: Patient reports significant challenges with prioritizing multiple competing demands including work responsibilities, upcoming court date, and rental property project. Describes feeling overwhelmed by having too much going on and inability to focus on one area without others falling behind. Pattern of task-switching appears to reduce overall effectiveness and creates additional cognitive burden. Plan: - Implement time-blocking strategy to allocate specific hours to each priority area - Focus on completing tasks to reduce overall cognitive load - Environmental structuring to minimize available options and distractions Exercise routine inconsistency Assessment: Patient recognizes exercise benefits for focus and nervous system regulation but struggles with routine maintenance. Reports cyclical pattern of 2-week adherence followed by discontinuation, particularly disrupted by schedule changes like holidays. Recent purchase of home exercise equipment (bike and weights) represents attempt at environmental accommodation for winter weather barriers to outdoor running. Plan: - Utilize newly purchased home exercise equipment (bike and weights) to maintain routine during winter - Exercise prior to work tasks to optimize focus benefits - Acknowledge exercise as mindful activity that increases endorphins and decreases cortisol 09/17/2025 Generalized anxiety disorder (ICD-10 - F41.1) ADHD with executive functioning deficits Assessment: Patient reports continued challenges with executive functioning including task initiation, planning, prioritization, organization, time management, and response inhibition. Currently taking low-dose Adderall which provides some benefit by allowing him to process multiple thoughts while maintaining focus, but he notes it speeds up his thinking rather than slowing it down and the attention deficit symptoms persist. He describes a pattern of iftnrl-gua-[id number] cycles rather than consistent daily productivity. Sleep issues may be contributing to cognitive difficulties. Patient demonstrates good metacognitive awareness and working memory as strengths. Plan: - Consider discussing alternative ADHD medications with prescribing provider if current Adderall is not providing optimal symptom control - Utilize executive functioning skills handouts provided, including assessment questionnaire to identify specific strengths and weaknesses - Implement time-based task management (e.g., 20-30 minute work blocks with timer) rather than completion-based goals to prevent burnout - Practice response inhibition techniques, including writing down thoughts to address later when feeling impulse to interrupt - Consider My Mouth is a [place] book for patient and children to address impulsivity Work performance and motivation issues Assessment: Patient reports significant decline in work performance and motivation since last session, describing minimal work output due to stress and personal life disruptions. He acknowledges not working as hard as previously and feeling overwhelmed by daily fires rather than maintaining consistent routines. 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 Plan: - Implement structured work routine with Tuesday- field visits and Tuesday for administrative tasks at home or coffee shop - Trial new [employer] software with larger accounts to reduce administrative burden - Focus on setting personal goals rather than solely company metrics - Utilize ADHD motivational strategies handout to make routine tasks more engaging Sleep disorders Assessment: Patient scheduled for sleep study due to severe snoring that wakes household members and laboratory results suggesting possible sleep-related issues including low blood oxygen levels. He reports chronic fatigue, difficulty with mornings, and not being a morning person. Has 99% deviated septum blockage contributing to sleep issues. Father required CPAP therapy. Sleep disturbances likely contributing to ADHD symptoms and executive functioning deficits. Plan: - Complete scheduled sleep study - ENT consultation completed for deviated septum (surgical correction involving nasal reconstruction discussed for 2025) - If CPAP therapy recommended but not tolerated, discuss alternative treatment options with sleep specialist - Consider wisdom tooth extraction in 2025 as part of comprehensive medical care plan Divorce-related financial and legal stress Assessment: Patient experiencing significant financial strain paying approximately $3000 monthly in child support and maintenance while accumulating credit card debt and living in substandard housing. Ex- has not removed him from mortgage despite non-payment affecting his credit score. He is representing himself in court to request reduction or elimination of $2500 monthly maintenance payments, arguing financial hardship and ex-'s choice to pursue doctorate rather than work. Court date scheduled for tomorrow with concerns about potential negative outcome requiring him to continue payments until end of 2025. Plan: - Attend court hearing tomorrow to request maintenance reduction and mortgage removal - Scan and email financial documentation to ex- before court date (utilize library scanning services if available) - Present evidence of financial hardship, ex-'s unemployment by choice, and presence of other adults in household - If unsuccessful, develop coping strategies for managing financial stress until maintenance ends in 202509/17/2025 Attention-defici t hyperactivity disorder, predominantly inattentive type (ICD-10 - F90.0) Previously diagnosed ADHD with executive functioning deficits Assessment: Patient reports continued challenges with executive functioning including task initiation, planning, prioritization, organization, time management, and response inhibition. Currently taking low-dose Adderall which provides some benefit by allowing him to process multiple thoughts while maintaining focus, but he notes it speeds up his thinking rather than slowing it down and the attention deficit symptoms persist. He describes a pattern of [id number] cycles rather than consistent daily productivity. Sleep issues may be contributing to cognitive difficulties. Patient demonstrates good metacognitive awareness and working memory as strengths. Plan: - Consider discussing alternative ADHD medications with prescribing provider if current Adderall is not providing optimal symptom control - Utilize executive functioning skills handouts provided, including assessment questionnaire to identify specific strengths and weaknesses - Implement time-based task management (e.g., 20-30 minute work blocks with timer) rather than completion-based goals to prevent burnout - Practice response inhibition techniques, including writing down thoughts to address later when feeling impulse to interrupt - Consider My Mouth is a [place] book for patient and children to address impulsivity Work performance and motivation issues Assessment: Patient reports significant decline in work performance and motivation since last session, describing minimal work output due to stress and personal life disruptions. He acknowledges not working as hard as previously and feeling overwhelmed by daily fires rather than maintaining consistent routines. 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 Plan: - Implement structured work routine with Tuesday- field visits and Tuesday for administrative tasks at home or coffee shop - Trial new [employer] software with larger accounts to reduce administrative burden - Focus on setting personal goals rather than solely company metrics - Utilize ADHD motivational strategies handout to make routine tasks more engaging Sleep disorders Assessment: Patient scheduled for sleep study due to severe snoring that wakes household members and laboratory results suggesting possible sleep-related issues including low blood oxygen levels. He reports chronic fatigue, difficulty with mornings, and not being a morning person. Has 99% deviated septum blockage contributing to sleep issues. Father required CPAP therapy. Sleep disturbances likely contributing to ADHD symptoms and executive functioning deficits. Plan: - Complete scheduled sleep study - ENT consultation completed for deviated septum (surgical correction involving nasal reconstruction discussed for 2025) - If CPAP therapy recommended but not tolerated, discuss alternative treatment options with sleep specialist - Consider wisdom tooth extraction in 2025 as part of comprehensive medical care plan Divorce-related financial and legal stress Assessment: Patient experiencing significant financial strain paying approximately $3000 monthly in child support and maintenance while accumulating credit card debt and living in substandard housing. Ex- has not removed him from mortgage despite non-payment affecting his credit score. He is representing himself in court to request reduction or elimination of $2500 monthly maintenance payments, arguing financial hardship and ex-'s choice to pursue doctorate rather than work. Court date scheduled for tomorrow with concerns about potential negative outcome requiring him to continue payments until end of 2025. Plan: - Attend court hearing tomorrow to request maintenance reduction and mortgage removal - Scan and email financial documentation to ex- before court date (utilize library scanning services if available) - Present evidence of financial hardship, ex-'s unemployment by choice, and presence of other adults in household - If unsuccessful, develop coping strategies for managing financial stress until maintenance ends in 202508/26/2025 Generalized anxiety disorder (ICD-10 - F41.1) Relationship communication dysfunction Assessment: Darius reports persistent communication difficulties with his ex-girlfriend Ghada, characterized by unilateral accountability expectations and defensive responses to feedback. He describes a pattern where Ghada brings up concerns about his behavior but becomes defensive when he attempts to express his own needs or concerns, often responding with statements like you make up your own narrative and believe it and discrediting his perspective. Darius reports feeling that conversations focus predominantly on his perceived shortcomings while his attempts to address relationship issues are met with deflection or counter-accusations. He expresses frustration with what he perceives as Ghada's unwillingness to take accountability for her actions, noting that when he provides examples of concerning behaviors, she either shuts down the conversation or redirects blame back to him. The relationship dynamic appears characterized by emotional imbalance, with Darius reporting he consistently accommodates Ghada's needs while his own remain unmet. He describes feeling like he has limited options: suck it up and take it, attempt communication that results in conflict, or leave the relationship, though he feels constrained by the . Plan: - Continue exploring communication patterns and relationship dynamics in therapy - Work on developing assertiveness skills and boundary-setting techniques - Process feelings of emotional imbalance and unmet needs in the relationship Financial stress from divorce Assessment: Darius reports significant financial strain related to ongoing divorce proceedings and maintenance payments to his ex-. He describes being in negative guidry flow monthly, primarily due to maintenance and alimony obligations, while his ex- has not made mortgage payments on their former shared home despite his fulfillment of paying off the line of credit. Darius reports using his grandfather's inheritance for the down payment and investing work bonuses into the home, yet continues paying for his ex- to live there while he resides in substandard housing conditions. He has a court date scheduled for September 18 to petition for removal from the mortgage and potential modification of maintenance payments. Darius expresses particular frustration that he must financially support his ex-'s lifestyle despite her initiating the divorce following extramarital affairs, while he struggles with credit card debt and inadequate living conditions where both he and his son sleep on couches. Plan: - Continue processing feelings related to financial inequity and divorce settlement - Explore coping strategies for managing financial stress until maintenance obligations end in 2025 - Follow up after 09/[address] Parenting challenges with custody arrangement Assessment: Darius reports difficulties managing his parenting responsibilities within the current custody arrangement, having his children three nights per week while learning to navigate single parenting. He expresses concern about his children's school attendance, noting they miss school at least once weekly while at their mom's, and reports receiving notifications about absences that his ex- attributes to illness but which he suspects are due to lack of motivation. Darius describes feeling caught between his children and Ghada when she lived with him, noting his children were always on eggshells due to Ghada's complaints about their behavior, which he would address, creating a dynamic where he felt constantly in the middle. He reports ongoing challenges with his children's participation in extracurricular activities he pays for, noting they frequently don't attend. Plan: - Continue exploring strategies for effective co-parenting within current custody arrangement - Process feelings related to being caught between partner and children's needs - Discuss approaches for supporting children's school attendance and engagement ADHD management Assessment: Darius acknowledges having ADHD and describes experiencing typical symptoms including procrastination and need for urgency-driven motivation. He reports a recent example where he accomplished more tasks in the final 30 minutes before needing to leave for baseball practice than he had completed previously, recognizing this pattern as characteristic of his ADHD but expressing confusion about why he requires this sense of urgency to feel motivated. Plan: - Continue addressing ADHD symptoms and their impact on daily functioning - Explore strategies for managing procrastination and improving task initiation without crisis-driven motivation 08/26/2025 Attention-defici t hyperactivity disorder, predominantly inattentive type (ICD-10 - F90.0) Previously diagnosed Relationship communication dysfunction Assessment: Darius reports persistent communication difficulties with his ex-girlfriend Ghada, characterized by unilateral accountability expectations and defensive responses to feedback. He describes a pattern where Ghada brings up concerns about his behavior but becomes defensive when he attempts to express his own needs or concerns, often responding with statements like you make up your own narrative and believe it and discrediting his perspective. Darius reports feeling that conversations focus predominantly on his perceived shortcomings while his attempts to address relationship issues are met with deflection or counter-accusations. He expresses frustration with what he perceives as Ghada's unwillingness to take accountability for her actions, noting that when he provides examples of concerning behaviors, she either shuts down the conversation or redirects blame back to him. The relationship dynamic appears characterized by emotional imbalance, with Darius reporting he consistently accommodates Ghada's needs while his own remain unmet. He describes feeling like he has limited options: suck it up and take it, attempt communication that results in conflict, or leave the relationship, though he feels constrained by the . Plan: - Continue exploring communication patterns and relationship dynamics in therapy - Work on developing assertiveness skills and boundary-setting techniques - Process feelings of emotional imbalance and unmet needs in the relationship Financial stress from divorce Assessment: Darius reports significant financial strain related to ongoing divorce proceedings and maintenance payments to his ex-. He describes being in negative guidry flow monthly, primarily due to maintenance and alimony obligations, while his ex- has not made mortgage payments on their former shared home despite his fulfillment of paying off the line of credit. Darius reports using his grandfather's inheritance for the down payment and investing work bonuses into the home, yet continues paying for his ex- to live there while he resides in substandard housing conditions. He has a court date scheduled for September 18 to petition for removal from the mortgage and potential modification of maintenance payments. Darius expresses particular frustration that he must financially support his ex-'s lifestyle despite her initiating the divorce following extramarital affairs, while he struggles with credit card debt and inadequate living conditions where both he and his son sleep on couches. Plan: - Continue processing feelings related to financial inequity and divorce settlement - Explore coping strategies for managing financial stress until maintenance obligations end in 2025 - Follow up after 09/[address] Parenting challenges with custody arrangement Assessment: Darius reports difficulties managing his parenting responsibilities within the current custody arrangement, having his children three nights per week while learning to navigate single parenting. He expresses concern about his children's school attendance, noting they miss school at least once weekly while at their mom's, and reports receiving notifications about absences that his ex- attributes to illness but which he suspects are due to lack of motivation. Darius describes feeling caught between his children and Ghada when she lived with him, noting his children were always on eggshells due to Ghada's complaints about their behavior, which he would address, creating a dynamic where he felt constantly in the middle. He reports ongoing challenges with his children's participation in extracurricular activities he pays for, noting they frequently don't attend. Plan: - Continue exploring strategies for effective co-parenting within current custody arrangement - Process feelings related to being caught between partner and children's needs - Discuss approaches for supporting children's school attendance and engagement ADHD management Assessment: Darius acknowledges having ADHD and describes experiencing typical symptoms including procrastination and need for urgency-driven motivation. He reports a recent example where he accomplished more tasks in the final 30 minutes before needing to leave for baseball practice than he had completed previously, recognizing this pattern as characteristic of his ADHD but expressing confusion about why he requires this sense of urgency to feel motivated. Plan: - Continue addressing ADHD symptoms and their impact on daily functioning - Explore strategies for managing procrastination and improving task initiation without crisis-driven motivation 08/07/2025 Major depressive disorder, recurrent, mild (ICD-10 - F33.0) Ruminating thoughts and anxiety Assessment: Patient reports persistent ruminating thoughts, particularly related to recent court filing against ex- regarding mortgage and custody issues. He describes fear and anticipation of retaliation, stating I'm afraid, kind of like scared like she's gonna do something because I just submitted that. Patient acknowledges ADD diagnosis and describes thinking through every possibility that could happen which keeps him stuck and focused on potential negative outcomes. He reports physical manifestations including jaw tension. Patient recognizes pattern of rumination interfering with daily functioning and expresses lack of confidence in his ability to handle situations despite past success managing adverse circumstances. Symptoms appear exacerbated by ongoing legal stressors and lack of perceived social support. Plan: - Discuss grounding techniques and coping strategies to manage nervous system dysregulation - Explore journaling as outlet for ruminating thoughts when external validation unavailable - Encourage physical activity, specifically 20 minutes at gym to reduce rumination time - Continue therapy sessions for non-judgmental support and validation - Utilize DBT [place] A[employer] skill to visualize self using skills effectively. Social support and communication patterns Assessment: Patient identifies pattern where female support figures (mother, sister, ex-girlfriend Ghada, ex-) respond with impatience to his emotional needs, describing their cup is very small for handling his problems. He reports feeling invalidated and receiving responses like figure it out rather than empathy. In contrast, he found recent conversation with male friend Dirk validating and empathetic. Patient expresses concern about developing negative associations with female relationships but recognizes this pattern has persisted for four years since father's in 2020. He describes reciprocal listening in relationships but feels criticized for ruminating and told to keep conversations positive. Plan: - Explore communication patterns and relationship dynamics in therapy - Discuss identifying individuals with capacity for emotional support - Consider addressing communication style preferences in future relationships 08/07/2025 Generalized anxiety disorder (ICD-10 - F41.1) Ruminating thoughts and anxiety Assessment: Patient reports persistent ruminating thoughts, particularly related to recent court filing against ex- regarding mortgage and custody issues. He describes fear and anticipation of retaliation, stating I'm afraid, kind of like scared like she's gonna do something because I just submitted that. Patient acknowledges ADD diagnosis and describes thinking through every possibility that could happen which keeps him stuck and focused on potential negative outcomes. He reports physical manifestations including jaw tension. Patient recognizes pattern of rumination interfering with daily functioning and expresses lack of confidence in his ability to handle situations despite past success managing adverse circumstances. Symptoms appear exacerbated by ongoing legal stressors and lack of perceived social support. Plan: - Discuss grounding techniques and coping strategies to manage nervous system dysregulation - Explore journaling as outlet for ruminating thoughts when external validation unavailable - Encourage physical activity, specifically 20 minutes at gym to reduce rumination time - Continue therapy sessions for non-judgmental support and validation - Utilize DBT [place] Ahead skill to visualize self using skills effectively. Social support and communication patterns Assessment: Patient identifies pattern where female support figures (mother, sister, ex-girlfriend Ghada, ex-) respond with impatience to his emotional needs, describing their cup is very small for handling his problems. He reports feeling invalidated and receiving responses like figure it out rather than empathy. In contrast, he found recent conversation with male friend Dirk validating and empathetic. Patient expresses concern about developing negative associations with female relationships but recognizes this pattern has persisted for four years since father's in 2020. He describes reciprocal listening in relationships but feels criticized for ruminating and told to keep conversations positive. Plan: - Explore communication patterns and relationship dynamics in therapy - Discuss identifying individuals with capacity for emotional support - Consider addressing communication style preferences in future relationships 06/17/2025 Problems in relationship with spouse or partner (ICD-10 - Z63.0) 1. Relationship difficulties with girlfriend Assessment: Darius reports ongoing conflicts and communication issues with his girlfriend. He describes her behavior as manipulative, controlling, and emotionally volatile. There are concerns about her harsh treatment of Darius and his children, as well as her unrealistic expectations. Daruis feels stuck in a cycle of negativity and is uncertain about the future of the relationship. The impending of their child adds complexity to the situation. Darius is attempting to set boundaries and reduce his reactivity to her provocations, but struggles with feelings of guilt and obligation. Plan: - Continue practicing non-reactive communication techniques with girlfriend - Explore options for co-parenting if relationship ends - Discuss plans for informing children about the after son's upcoming birthday - Monitor girlfriend's behavior for signs of improvement or deterioration 2. Co-parenting challenges with ex- Assessment: Darius reports ongoing difficulties co-parenting with his ex-. He describes her as uncooperative and obstructive, particularly regarding the children's activities and schedules. Darius feels frustrated by the lack of stability for his children post-divorce and the financial strain of supporting his ex-'s lifestyle while struggling to establish his own household. There are concerns about the impact of these challenges on the children's well-being and Darius's relationship with them. Plan: - Continue efforts to communicate effectively with ex- regarding children's activities and schedules - Explore legal options for reducing alimony payments - Monitor children's adjustment to post-divorce living arrangements 3. Grief and loss related to father's Assessment: Darius is still processing the loss of his father, who was a significant source of support and guidance. The absence of his father is particularly felt in the context of Darius's current life challenges. Darius expresses difficulty in navigating major life decisions without his father's input and misses the connection to his past that his father provided. Plan: - Consider grief support options to address ongoing loss of father - Encourage Darius to reflect on what advice his father might give in current situations 4. Financial stress Assessment: Darius reports significant financial stress related to alimony payments, supporting multiple households, and the prospect of additional expenses with a new baby. 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 The financial strain is impacting his ability to provide stability for his children and contributing to overall stress levels. Plan: - Explore options for reducing expenses or increasing income - Monitor impact of potential reduction in alimony payments on financial situation 5. Parenting concerns Assessment: Darius expresses worry about his children's adjustment to the divorce and their relationships with him. He reports specific concerns about his middle daughter, who is exhibiting behavioral issues, social difficulties at school, and sleep problems. Darius is struggling to find appropriate activities and support for his children while navigating co-parenting challenges. Plan: - Continue efforts to find suitable activities for children, particularly the middle daughter - Monitor middle daughter's behavior and social interactions at school - Explore options for addressing daughter's sleep issues beyond current melatonin use Follow-up: - Schedule next therapy session to continue addressing identified issues and monitor progress - Patient to practice assertiveness techniques and boundary-setting between sessions 06/04/2025 Major depressive disorder, recurrent severe without psychotic features (ICD-10 - F33.2) Relationship Concerns Assessment: Darius reports improvement in his current relationship since the last session. He implemented the suggestion to request space from his girlfriend, who temporarily stayed at her sister's house. They had a productive conversation and are planning to work on their relationship. However, Darius expresses concern about repeating past relationship patterns, particularly given his history of divorce. He acknowledges feeling conflicted about the relationship, especially with the news of his girlfriend's (12 weeks). Darius is worried about potential incompatibilities in parenting styles, with his girlfriend favoring a fear-based approach while he prefers a more empathetic and understanding style. There's evidence of ongoing introspection about relationship choices, with Darius wondering if he tends to choose partners similar to his mother's parenting style, which may be impacting his self-esteem. Plan: - Continue to explore and address relationship dynamics in therapy sessions - Discuss strategies for effective communication with partner about parenting styles and relationship concerns - Explore the impact of past relationships and family dynamics on current relationship patterns Anxiety and Self-Regulation Assessment: Darius reports experiencing significant anxiety, particularly upon waking. He has been implementing various coping strategies discussed in previous sessions, including deep breathing exercises and using ice cubes as a grounding technique. These methods have shown some effectiveness in managing his anxiety symptoms. Darius also mentions that running helps with self-regulation. He acknowledges difficulty in regulating his emotions, especially when faced with multiple stressors simultaneously (e.g., work issues, co-parenting challenges). There's evidence of progress in applying self-regulation techniques not only for himself but also in parenting, as he successfully used the ice cube method to help calm his daughter. Plan: - Continue to reinforce and encourage the use of learned coping strategies for anxiety management including TIP - Introduce and explain the concept of radical acceptance as a tool for managing anxiety and rumination - Provide written information on radical acceptance, including examples and practical applications - Discuss potential journaling techniques (written, audio, or video) as an additional coping strategy - Explore additional stress management techniques to address work-related and co-parenting stressors Grief and Loss Assessment: Darius expresses a desire to discuss the impact of his father's , which occurred within a year of his divorce. He acknowledges that this significant loss has affected him deeply and may have contributed to the decline of his previous marriage. Darius mentions having received information on grief support groups but is uncertain about pursuing it at this time. The recent loss appears to be a significant factor in his current emotional state and decision-making processes, particularly in relation to parenting and relationships. Plan: - Allocate time in future sessions to specifically address grief and its impact on Darius's life - Respect patient's current hesitation regarding grief support group while keeping the option open - Continue to monitor the effects of grief on Darius's daily functioning and relationships Co-Parenting Challenges Assessment: Darius reports ongoing difficulties in co-parenting with his ex-, describing recent interactions as a nightmare. He expresses frustration with inconsistent parenting approaches, particularly regarding school attendance for his 11-year-old son. Darius acknowledges struggling to set boundaries and manage the emotional impact of these conflicts. He recognizes that these issues affect his current relationship and overall well-being. There's evidence of difficulty in maintaining a consistent parenting approach across households, which is causing stress and concern for Darius. Plan: - Discuss strategies for effective co-parenting communication and boundary-setting - Explore methods to minimize the emotional impact of co-parenting conflicts - Consider developing a more structured co-parenting plan to address school attendance and other christiansen issues 06/04/2025 Generalized anxiety disorder (ICD-10 - F41.1) Relationship Concerns Assessment: Darius reports improvement in his current relationship since the last session. He implemented the suggestion to request space from his girlfriend, who temporarily stayed at her sister's house. They had a productive conversation and are planning to work on their relationship. However, Darius expresses concern about repeating past relationship patterns, particularly given his history of divorce. He acknowledges feeling conflicted about the relationship, especially with the news of his girlfriend's (12 weeks). Darius is worried about potential incompatibilities in parenting styles, with his girlfriend favoring a fear-based approach while he prefers a more empathetic and understanding style. There's evidence of ongoing introspection about relationship choices, with Darius wondering if he tends to choose partners similar to his mother's parenting style, which may be impacting his self-esteem. Plan: - Continue to explore and address relationship dynamics in therapy sessions - Discuss strategies for effective communication with partner about parenting styles and relationship concerns - Explore the impact of past relationships and family dynamics on current relationship patterns Anxiety and Self-Regulation Assessment: Darius reports experiencing significant anxiety, particularly upon waking. He has been implementing various coping strategies discussed in previous sessions, including deep breathing exercises and using ice cubes as a grounding technique. These methods have shown some effectiveness in managing his anxiety symptoms. Darius also mentions that running helps with self-regulation. He acknowledges difficulty in regulating his emotions, especially when faced with multiple stressors simultaneously (e.g., work issues, co-parenting challenges). There's evidence of progress in applying self-regulation techniques not only for himself but also in parenting, as he successfully used the ice cube method to help calm his daughter. Plan: - Continue to reinforce and encourage the use of learned coping strategies for anxiety management including TIP - Introduce and explain the concept of radical acceptance as a tool for managing anxiety and rumination - Provide written information on radical acceptance, including examples and practical applications - Discuss potential journaling techniques (written, audio, or video) as an additional coping strategy - Explore additional stress management techniques to address work-related and co-parenting stressors Grief and Loss Assessment: Darius expresses a desire to discuss the impact of his father's , which occurred within a year of his divorce. He acknowledges that this significant loss has affected him deeply and may have contributed to the decline of his previous marriage. Darius mentions having received information on grief support groups but is uncertain about pursuing it at this time. The recent loss appears to be a significant factor in his current emotional state and decision-making processes, particularly in relation to parenting and relationships. Plan: - Allocate time in future sessions to specifically address grief and its impact on Darius's life - Respect patient's current hesitation regarding grief support group while keeping the option open - Continue to monitor the effects of grief on Darius's daily functioning and relationships Co-Parenting Challenges Assessment: Darius reports ongoing difficulties in co-parenting with his ex-, describing recent interactions as a nightmare. He expresses frustration with inconsistent parenting approaches, particularly regarding school attendance for his 11-year-old son. Darius acknowledges struggling to set boundaries and manage the emotional impact of these conflicts. He recognizes that these issues affect his current relationship and overall well-being. There's evidence of difficulty in maintaining a consistent parenting approach across households, which is causing stress and concern for Darius. Plan: - Discuss strategies for effective co-parenting communication and boundary-setting - Explore methods to minimize the emotional impact of co-parenting conflicts - Consider developing a more structured co-parenting plan to address school attendance and other christiansen issues 05/24/2025 Major depressive disorder, recurrent severe without psychotic features (ICD-10 - F33.2) Suicidal Ideation Assessment: Patient reports recent suicidal ideation with a specific plan. On Tuesday night, he visited his father's grave with a gun, intending to harm himself. He called his mother, who talked him out of it. The gun has since been removed from his possession. This acute suicidal episode appears to be triggered by the anniversary of his father's (4 years ago), compounded by current life stressors including relationship issues, financial problems, and custody arrangements. Patient identifies his father as a significant source of support, and his loss seems to have profoundly impacted the patient's coping mechanisms. Plan: - Assess suicide risk at each session - Implement safety plan, including removal of firearms and other potential means of self-harm - Utilize TIP skills (Temperature, Intense exercise, Paced breathing, and Paired muscle relaxation) for emotional regulation - Recommend carrying sour candies (e.g., lemon warheads) for grounding during intense emotional states - Schedule weekly therapy sessions Depression Assessment: Patient presents with symptoms consistent with major depressive disorder, including depressed mood, difficulty with daily living activities, and sleep disturbances. He reports feeling overwhelmed by life problems and unable to overcome them. Sleep is described as inconsistent, ranging from 2-4 hours per night. Patient is currently taking fluoxetine 40mg daily but questions its efficacy. There is a history of mood-related issues with SSRIs in adolescence. Patient denies manic symptoms, suggesting that previous concerns about bipolar disorder may be unfounded. Plan: - Continue fluoxetine 40mg daily pending evaluation by nurse practitioner - Return to the walk-in clinic next week to meet with nurse practitioner for evaluation - Encourage use of support system (mother and sister) - Monitor sleep patterns and provide sleep hygiene education Anxiety Assessment: Patient reports experiencing anxiety, with a history of panic attacks. He describes one incident where he believed he was having a heart attack, but an EKG was normal. Patient has been prescribed buspirone for anxiety management but reports not using it recently. Plan: - Teach and practice deep breathing techniques, including box breathing (4-4-4-4 method) - Implement paired muscle relaxation techniques - Monitor for recurrence of panic attacks Grief and Trauma Assessment: Patient expresses difficulty in coping with grief related to his father's four years ago. The anniversary of his father's appears to be a significant trigger for emotional distress. Patient identifies learning to handle grief and trauma as a primary goal for therapy, particularly when feeling overwhelmed. He reports struggling to ask for help and missing the support his father provided. Plan: - Implement grief counseling techniques - Develop coping strategies for managing overwhelming emotions - Encourage utilization of support system (mother and sister) - Explore and address barriers to asking for help Relationship Issues Assessment: Patient reports recent separation from his girlfriend, who has moved out. He has custody of his three children three times a week. Previous relationships have been marked by conflict, with patient describing instances of throwing objects (e.g., wedding ring) in response to infidelity. Patient also reports occasional intense anger reactions when feeling mistreated or disrespected, though he denies physical aggression towards others. Ex-girlfriend is currently 9 weeks with his child. Plan: - Explore patterns in relationships and develop healthier coping mechanisms - Address anger management techniques - Discuss co-parenting strategies and support 05/24/2025 Generalized anxiety disorder (ICD-10 - F41.1) Suicidal Ideation Assessment: Patient reports recent suicidal ideation with a specific plan. On Tuesday night, he visited his father's grave with a gun, intending to harm himself. He called his mother, who talked him out of it. The gun has since been removed from his possession. This acute suicidal episode appears to be triggered by the anniversary of his father's (4 years ago), compounded by current life stressors including relationship issues, financial problems, and custody arrangements. Patient identifies his father as a significant source of support, and his loss seems to have profoundly impacted the patient's coping mechanisms. Plan: - Assess suicide risk at each session - Implement safety plan, including removal of firearms and other potential means of self-harm - Utilize TIP skills (Temperature, Intense exercise, Paced breathing, and Paired muscle relaxation) for emotional regulation - Recommend carrying sour candies (e.g., lemon warheads) for grounding during intense emotional states - Schedule weekly therapy sessions Depression Assessment: Patient presents with symptoms consistent with major depressive disorder, including depressed mood, difficulty with daily living activities, and sleep disturbances. He reports feeling overwhelmed by life problems and unable to overcome them. Sleep is described as inconsistent, ranging from 2-4 hours per night. Patient is currently taking fluoxetine 40mg daily but questions its efficacy. There is a history of mood-related issues with SSRIs in adolescence. Patient denies manic symptoms, suggesting that previous concerns about bipolar disorder may be unfounded. Plan: - Continue fluoxetine 40mg daily pending evaluation by nurse practitioner - Return to the walk-in clinic next week to meet with nurse practitioner for evaluation - Encourage use of support system (mother and sister) - Monitor sleep patterns and provide sleep hygiene education Anxiety Assessment: Patient reports experiencing anxiety, with a history of panic attacks. He describes one incident where he believed he was having a heart attack, but an EKG was normal. Patient has been prescribed buspirone for anxiety management but reports not using it recently. Plan: - Teach and practice deep breathing techniques, including box breathing (4-4-4-4 method) - Implement paired muscle relaxation techniques - Monitor for recurrence of panic attacks Grief and Trauma Assessment: Patient expresses difficulty in coping with grief related to his father's four years ago. The anniversary of his father's appears to be a significant trigger for emotional distress. Patient identifies learning to handle grief and trauma as a primary goal for therapy, particularly when feeling overwhelmed. He reports struggling to ask for help and missing the support his father provided. Plan: - Implement grief counseling techniques - Develop coping strategies for managing overwhelming emotions - Encourage utilization of support system (mother and sister) - Explore and address barriers to asking for help Relationship Issues Assessment: Patient reports recent separation from his girlfriend, who has moved out. He has custody of his three children three times a week. Previous relationships have been marked by conflict, with patient describing instances of throwing objects (e.g., wedding ring) in response to infidelity. Patient also reports occasional intense anger reactions when feeling mistreated or disrespected, though he denies physical aggression towards others. Ex-girlfriend is currently 9 weeks with his child. Plan: - Explore patterns in relationships and develop healthier coping mechanisms - Address anger management techniques - Discuss co-parenting strategies and support 06/17/2025 Major depressive disorder, recurrent severe without psychotic features (ICD-10 - F33.2) 1. Relationship difficulties with girlfriend Assessment: Darius reports ongoing conflicts and communication issues with his girlfriend. He describes her behavior as manipulative, controlling, and emotionally volatile. There are concerns about her harsh treatment of Darius and his children, as well as her unrealistic expectations. Darius feels stuck in a cycle of negativity and is uncertain about the future of the relationship. The impending of their child adds complexity to the situation. Darius is attempting to set boundaries and reduce his reactivity to her provocations, but struggles with feelings of guilt and obligation. Plan: - Continue practicing non-reactive communication techniques with girlfriend - Explore options for co-parenting if relationship ends - Discuss plans for informing children about the after son's upcoming birthday - Monitor girlfriend's behavior for signs of improvement or deterioration 2. Co-parenting challenges with ex- Assessment: Darius reports ongoing difficulties co-parenting with his ex-. He describes her as uncooperative and obstructive, particularly regarding the children's activities and schedules. Darius feels frustrated by the lack of stability for his children post-divorce and the financial strain of supporting his ex-'s lifestyle while struggling to establish his own household. There are concerns about the impact of these challenges on the children's well-being and Darius's relationship with them. Plan: - Continue efforts to communicate effectively with ex- regarding children's activities and schedules - Explore legal options for reducing alimony payments - Monitor children's adjustment to post-divorce living arrangements 3. Grief and loss related to father's Assessment: Darius is still processing the loss of his father, who was a significant source of support and guidance. The absence of his father is particularly felt in the context of Darius's current life challenges. Darius expresses difficulty in navigating major life decisions without his father's input and misses the connection to his past that his father provided. Plan: - Consider grief support options to address ongoing loss of father - Encourage Darius to reflect on what advice his father might give in current situations 4. Financial stress Assessment: Darius reports significant financial stress related to alimony payments, supporting multiple households, and the prospect of additional expenses with a new baby. 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 The financial strain is impacting his ability to provide stability for his children and contributing to overall stress levels. Plan: - Explore options for reducing expenses or increasing income - Monitor impact of potential reduction in alimony payments on financial situation 5. Parenting concerns Assessment: Darius expresses worry about his children's adjustment to the divorce and their relationships with him. He reports specific concerns about his middle daughter, who is exhibiting behavioral issues, social difficulties at school, and sleep problems. Darius is struggling to find appropriate activities and support for his children while navigating co-parenting challenges. Plan: - Continue efforts to find suitable activities for children, particularly the middle daughter - Monitor middle daughter's behavior and social interactions at school - Explore options for addressing daughter's sleep issues beyond current melatonin use Follow-up: - Schedule next therapy session to continue addressing identified issues and monitor progress - Patient to practice assertiveness techniques and boundary-setting between sessions 06/17/2025 Generalized anxiety disorder (ICD-10 - F41.1) 1. Relationship difficulties with girlfriend Assessment: Darius reports ongoing conflicts and communication issues with his girlfriend. He describes her behavior as manipulative, controlling, and emotionally volatile. There are concerns about her harsh treatment of Darius and his children, as well as her unrealistic expectations. Darius feels stuck in a cycle of negativity and is uncertain about the future of the relationship. The impending of their child adds complexity to the situation. Darius is attempting to set boundaries and reduce his reactivity to her provocations, but struggles with feelings of guilt and obligation. Plan: - Continue practicing non-reactive communication techniques with girlfriend - Explore options for co-parenting if relationship ends - Discuss plans for informing children about the after son's upcoming birthday - Monitor girlfriend's behavior for signs of improvement or deterioration 2. Co-parenting challenges with ex- Assessment: Darius reports ongoing difficulties co-parenting with his ex-. He describes her as uncooperative and obstructive, particularly regarding the children's activities and schedules. Darius feels frustrated by the lack of stability for his children post-divorce and the financial strain of supporting his ex-'s lifestyle while struggling to establish his own household. There are concerns about the impact of these challenges on the children's well-being and Darius's relationship with them. Plan: - Continue efforts to communicate effectively with ex- regarding children's activities and schedules - Explore legal options for reducing alimony payments - Monitor children's adjustment to post-divorce living arrangements 3. Grief and loss related to father's Assessment: Darius is still processing the loss of his father, who was a significant source of support and guidance. The absence of his father is particularly felt in the context of Darius's current life challenges. Darius expresses difficulty in navigating major life decisions without his father's input and misses the connection to his past that his father provided. Plan: - Consider grief support options to address ongoing loss of father - Encourage Darius to reflect on what advice his father might give in current situations 4. Financial stress Assessment: Darius reports significant financial stress related to alimony payments, supporting multiple households, and the prospect of additional expenses with a new baby. 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 The financial strain is impacting his ability to provide stability for his children and contributing to overall stress levels. Plan: - Explore options for reducing expenses or increasing income - Monitor impact of potential reduction in alimony payments on financial situation 5. Parenting concerns Assessment: Darius expresses worry about his children's adjustment to the divorce and their relationships with him. He reports specific concerns about his middle daughter, who is exhibiting behavioral issues, social difficulties at school, and sleep problems. Darius is struggling to find appropriate activities and support for his children while navigating co-parenting challenges. Plan: - Continue efforts to find suitable activities for children, particularly the middle daughter - Monitor middle daughter's behavior and social interactions at school - Explore options for addressing daughter's sleep issues beyond current melatonin use Follow-up: - Schedule next therapy session to continue addressing identified issues and monitor progress - Patient to practice assertiveness techniques and boundary-setting between sessions 05/24/2025 Attention-defici t hyperactivity disorder, predominantly inattentive type (ICD-10 - F90.0) Previously diagnosed Suicidal Ideation Assessment: Patient reports recent suicidal ideation with a specific plan. On Tuesday night, he visited his father's grave with a gun, intending to harm himself. He called his mother, who talked him out of it. The gun has since been removed from his possession. This acute suicidal episode appears to be triggered by the anniversary of his father's (4 years ago), compounded by current life stressors including relationship issues, financial problems, and custody arrangements. Patient identifies his father as a significant source of support, and his loss seems to have profoundly impacted the patient's coping mechanisms. Plan: - Assess suicide risk at each session - Implement safety plan, including removal of firearms and other potential means of self-harm - Utilize TIP skills (Temperature, Intense exercise, Paced breathing, and Paired muscle relaxation) for emotional regulation - Recommend carrying sour candies (e.g., lemon warheads) for grounding during intense emotional states - Schedule weekly therapy sessions Depression Assessment: Patient presents with symptoms consistent with major depressive disorder, including depressed mood, difficulty with daily living activities, and sleep disturbances. He reports feeling overwhelmed by life problems and unable to overcome them. Sleep is described as inconsistent, ranging from 2-4 hours per night. Patient is currently taking fluoxetine 40mg daily but questions its efficacy. There is a history of mood-related issues with SSRIs in adolescence. Patient denies manic symptoms, suggesting that previous concerns about bipolar disorder may be unfounded. Plan: - Continue fluoxetine 40mg daily pending evaluation by nurse practitioner - Return to the walk-in clinic next week to meet with nurse practitioner for evaluation - Encourage use of support system (mother and sister) - Monitor sleep patterns and provide sleep hygiene education Anxiety Assessment: Patient reports experiencing anxiety, with a history of panic attacks. He describes one incident where he believed he was having a heart attack, but an EKG was normal. Patient has been prescribed buspirone for anxiety management but reports not using it recently. Plan: - Teach and practice deep breathing techniques, including box breathing (4-4-4-4 method) - Implement paired muscle relaxation techniques - Monitor for recurrence of panic attacks Grief and Trauma Assessment: Patient expresses difficulty in coping with grief related to his father's four years ago. The anniversary of his father's appears to be a significant trigger for emotional distress. Patient identifies learning to handle grief and trauma as a primary goal for therapy, particularly when feeling overwhelmed. He reports struggling to ask for help and missing the support his father provided. Plan: - Implement grief counseling techniques - Develop coping strategies for managing overwhelming emotions - Encourage utilization of support system (mother and sister) - Explore and address barriers to asking for help Relationship Issues Assessment: Patient reports recent separation from his girlfriend, who has moved out. He has custody of his three children three times a week. Previous relationships have been marked by conflict, with patient describing instances of throwing objects (e.g., wedding ring) in response to infidelity. Patient also reports occasional intense anger reactions when feeling mistreated or disrespected, though he denies physical aggression towards others. Ex-girlfriend is currently 9 weeks with his child. Plan: - Explore patterns in relationships and develop healthier coping mechanisms - Address anger management techniques - Discuss co-parenting strategies and support 06/04/2025 Attention-defici t hyperactivity disorder, predominantly inattentive type (ICD-10 - F90.0) Previously diagnosed Relationship Concerns Assessment: Darius reports improvement in his current relationship since the last session. He implemented the suggestion to request space from his girlfriend, who temporarily stayed at her sister's house. They had a productive conversation and are planning to work on their relationship. However, Darius expresses concern about repeating past relationship patterns, particularly given his history of divorce. He acknowledges feeling conflicted about the relationship, especially with the news of his girlfriend's (12 weeks). Darius is worried about potential incompatibilities in parenting styles, with his girlfriend favoring a fear-based approach while he prefers a more empathetic and understanding style. There's evidence of ongoing introspection about relationship choices, with Darius wondering if he tends to choose partners similar to his mother's parenting style, which may be impacting his self-esteem. Plan: - Continue to explore and address relationship dynamics in therapy sessions - Discuss strategies for effective communication with partner about parenting styles and relationship concerns - Explore the impact of past relationships and family dynamics on current relationship patterns Anxiety and Self-Regulation Assessment: Darius reports experiencing significant anxiety, particularly upon waking. He has been implementing various coping strategies discussed in previous sessions, including deep breathing exercises and using ice cubes as a grounding technique. These methods have shown some effectiveness in managing his anxiety symptoms. Darius also mentions that running helps with self-regulation. He acknowledges difficulty in regulating his emotions, especially when faced with multiple stressors simultaneously (e.g., work issues, co-parenting challenges). There's evidence of progress in applying self-regulation techniques not only for himself but also in parenting, as he successfully used the ice cube method to help calm his daughter. Plan: - Continue to reinforce and encourage the use of learned coping strategies for anxiety management including TIP - Introduce and explain the concept of radical acceptance as a tool for managing anxiety and rumination - Provide written information on radical acceptance, including examples and practical applications - Discuss potential journaling techniques (written, audio, or video) as an additional coping strategy - Explore additional stress management techniques to address work-related and co-parenting stressors Grief and Loss Assessment: Darius expresses a desire to discuss the impact of his father's , which occurred within a year of his divorce. He acknowledges that this significant loss has affected him deeply and may have contributed to the decline of his previous marriage. Darius mentions having received information on grief support groups but is uncertain about pursuing it at this time. The recent loss appears to be a significant factor in his current emotional state and decision-making processes, particularly in relation to parenting and relationships. Plan: - Allocate time in future sessions to specifically address grief and its impact on Darius's life - Respect patient's current hesitation regarding grief support group while keeping the option open - Continue to monitor the effects of grief on Darius's daily functioning and relationships Co-Parenting Challenges Assessment: Darius reports ongoing difficulties in co-parenting with his ex-, describing recent interactions as a nightmare. He expresses frustration with inconsistent parenting approaches, particularly regarding school attendance for his 11-year-old son. Darius acknowledges struggling to set boundaries and manage the emotional impact of these conflicts. He recognizes that these issues affect his current relationship and overall well-being. There's evidence of difficulty in maintaining a consistent parenting approach across households, which is causing stress and concern for Darius. Plan: - Discuss strategies for effective co-parenting communication and boundary-setting - Explore methods to minimize the emotional impact of co-parenting conflicts - Consider developing a more structured co-parenting plan to address school attendance and other christiansen issues 08/07/2025 Attention-defici t hyperactivity disorder, predominantly inattentive type (ICD-10 - F90.0) Previously diagnosed Ruminating thoughts and anxiety Assessment: Patient reports persistent ruminating thoughts, particularly related to recent court filing against ex- regarding mortgage and custody issues. He describes fear and anticipation of retaliation, stating I'm afraid, kind of like scared like she's gonna do something because I just submitted that. Patient acknowledges ADD diagnosis and describes thinking through every possibility that could happen which keeps him stuck and focused on potential negative outcomes. He reports physical manifestations including jaw tension. Patient recognizes pattern of rumination interfering with daily functioning and expresses lack of confidence in his ability to handle situations despite past success managing adverse circumstances. Symptoms appear exacerbated by ongoing legal stressors and lack of perceived social support. Plan: - Discuss grounding techniques and coping strategies to manage nervous system dysregulation - Explore journaling as outlet for ruminating thoughts when external validation unavailable - Encourage physical activity, specifically 20 minutes at gym to reduce rumination time - Continue therapy sessions for non-judgmental support and validation - Utilize DBT Whitman Ahead skill to visualize self using skills effectively. Social support and communication patterns Assessment: Patient identifies pattern where female support figures (mother, sister, ex-girlfriend Ghada, ex-) respond with impatience to his emotional needs, describing their cup is very small for handling his problems. He reports feeling invalidated and receiving responses like figure it out rather than empathy. In contrast, he found recent conversation with male friend Dirk validating and empathetic. Patient expresses concern about developing negative associations with female relationships but recognizes this pattern has persisted for four years since father's in 2020. He describes reciprocal listening in relationships but feels criticized for ruminating and told to keep conversations positive. Plan: - Explore communication patterns and relationship dynamics in therapy - Discuss identifying individuals with capacity for emotional support - Consider addressing communication style preferences in future relationships 08/26/2025 Major depressive disorder, recurrent, mild (ICD-10 - F33.0) Relationship communication dysfunction Assessment: Darius reports persistent communication difficulties with his ex-girlfriend Ghada, characterized by unilateral accountability expectations and defensive responses to feedback. He describes a pattern where Ghada brings up concerns about his behavior but becomes defensive when he attempts to express his own needs or concerns, often responding with statements like you make up your own narrative and believe it and discrediting his perspective. Darius reports feeling that conversations focus predominantly on his perceived shortcomings while his attempts to address relationship issues are met with deflection or counter-accusations. He expresses frustration with what he perceives as Ghada's unwillingness to take accountability for her actions, noting that when he provides examples of concerning behaviors, she either shuts down the conversation or redirects blame back to him. The relationship dynamic appears characterized by emotional imbalance, with Darius reporting he consistently accommodates Ghada's needs while his own remain unmet. He describes feeling like he has limited options: suck it up and take it, attempt communication that results in conflict, or leave the relationship, though he feels constrained by the . Plan: - Continue exploring communication patterns and relationship dynamics in therapy - Work on developing assertiveness skills and boundary-setting techniques - Process feelings of emotional imbalance and unmet needs in the relationship Financial stress from divorce Assessment: Darius reports significant financial strain related to ongoing divorce proceedings and maintenance payments to his ex-. He describes being in negative guidry flow monthly, primarily due to maintenance and alimony obligations, while his ex- has not made mortgage payments on their former shared home despite his fulfillment of paying off the line of credit. Darius reports using his grandfather's inheritance for the down payment and investing work bonuses into the home, yet continues paying for his ex- to live there while he resides in substandard housing conditions. He has a court date scheduled for September 18 to petition for removal from the mortgage and potential modification of maintenance payments. Darius expresses particular frustration that he must financially support his ex-'s lifestyle despite her initiating the divorce following extramarital affairs, while he struggles with credit card debt and inadequate living conditions where both he and his son sleep on couches. Plan: - Continue processing feelings related to financial inequity and divorce settlement - Explore coping strategies for managing financial stress until maintenance obligations end in 2025 - Follow up after 09/[address] date Parenting challenges with custody arrangement Assessment: Darius reports difficulties managing his parenting responsibilities within the current custody arrangement, having his children three nights per week while learning to navigate single parenting. He expresses concern about his children's school attendance, noting they miss school at least once weekly while at their mom's, and reports receiving notifications about absences that his ex- attributes to illness but which he suspects are due to lack of motivation. Darius describes feeling caught between his children and Ghada when she lived with him, noting his children were always on eggshells due to Ghada's complaints about their behavior, which he would address, creating a dynamic where he felt constantly in the middle. He reports ongoing challenges with his children's participation in extracurricular activities he pays for, noting they frequently don't attend. Plan: - Continue exploring strategies for effective co-parenting within current custody arrangement - Process feelings related to being caught between partner and children's needs - Discuss approaches for supporting children's school attendance and engagement ADHD management Assessment: Darius acknowledges having ADHD and describes experiencing typical symptoms including procrastination and need for urgency-driven motivation. He reports a recent example where he accomplished more tasks in the final 30 minutes before needing to leave for baseball practice than he had completed previously, recognizing this pattern as characteristic of his ADHD but expressing confusion about why he requires this sense of urgency to feel motivated. Plan: - Continue addressing ADHD symptoms and their impact on daily functioning - Explore strategies for managing procrastination and improving task initiation without crisis-driven motivation 09/03/2025 Generalized anxiety disorder (ICD-10 - F41.1) ADHD executive dysfunction Assessment: Patient reports severe executive functioning deficits consistent with ADHD, including impaired task initiation, sustained attention difficulties, and chronic procrastination patterns. Despite daily Adderall treatment, patient describes being homebound for over 24 hours due to inclement weather, unable to complete basic tasks like emails and expense reports, instead engaging in dopamine-seeking behaviors such as phone games. Patient demonstrates insight into dopamine-driven behavior patterns but struggles with implementation of coping strategies. Environmental factors appear significant, with [id number] setting providing excessive distractions and options that worsen symptoms. Patient reports cyclical patterns of brief success with routines followed by regression to baseline dysfunction. Previous positive response to structured environments (library during unemployment, coffee shops) suggests environmental modifications may be beneficial. Plan: - Continue current medications as prescribed by PCP - Implement environmental modifications including working in coffee shops or other structured environments to create sense of urgency - Trial body doubling technique with in-person or phone presence of another person during task completion - Utilize PINCH acronym motivational framework, particularly focusing on hurry/urgency component - Incorporate regular exercise routine to improve focus and baseline nervous system regulation - Divide daily schedule into focused time blocks for different priorities (work, court preparation, rental project) - Clinician to provide educational handouts on happy chemicals and PINCH framework at next session Task prioritization difficulties Assessment: Patient reports significant challenges with prioritizing multiple competing demands including work responsibilities, upcoming court date, and rental property project. Describes feeling overwhelmed by having too much going on and inability to focus on one area without others falling behind. Pattern of task-switching appears to reduce overall effectiveness and creates additional cognitive burden. Plan: - Implement time-blocking strategy to allocate specific hours to each priority area - Focus on completing tasks to reduce overall cognitive load - Environmental structuring to minimize available options and distractions Exercise routine inconsistency Assessment: Patient recognizes exercise benefits for focus and nervous system regulation but struggles with routine maintenance. Reports cyclical pattern of 2-week adherence followed by discontinuation, particularly disrupted by schedule changes like holidays. Recent purchase of home exercise equipment (bike and weights) represents attempt at environmental accommodation for winter weather barriers to outdoor running. Plan: - Utilize newly purchased home exercise equipment (bike and weights) to maintain routine during winter - Exercise prior to work tasks to optimize focus benefits - Acknowledge exercise as mindful activity that increases endorphins and decreases cortisol 09/10/2025 Attention-defici t hyperactivity disorder, predominantly inattentive type (ICD-10 - F90.0) Previously diagnosed Work-related acute stress Assessment: Darius is experiencing significant acute stress related to a presentation scheduled for tomorrow with his [employer], following what he describes as a bad sales month. His stress is manifesting as catastrophic thinking, specifically fear of termination (my first thought is like, Oh, my [employer], like I'm gonna get fired). He reports feeling unprepared and identifies preparation as christiansen to managing his anxiety. 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 He has not disclosed his upcoming to his employer, adding another layer of complexity to his work situation. Plan: - Focus on thorough preparation for presentation including organizing numbers and presenting information in positive direction - Implement stress management techniques during preparation including pacing and taking breaks - Plan post-work recovery activities including treadmill exercise to manage cortisol - Utilize grounding techniques before presentation using five senses approach or TIP (Temperature, Intense exercise, Paced breathing, Paired muscle relaxation) - Plan reward after presentation completion such as treating himself to lunch Job dissatisfaction and burnout Assessment: Darius reports chronic work-related stress 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 He describes burnout from managing both lead generation and account management responsibilities. He expresses desire to discuss workload concerns with his rd manager but feels his recent poor performance month puts him in a disadvantageous position for such discussions. He is considering job alternatives, with two recruiters actively contacting him about opportunities, and plans to evaluate his current position once personal life circumstances stabilize. 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 Currently taking low-dose Adderall which provides some benefit by allowing him to process multiple thoughts while maintaining focus, but he notes it speeds up his thinking rather than slowing it down and the attention deficit symptoms persist. He describes a pattern of qschmf-tev-[id number] cycles rather than consistent daily productivity. Sleep issues may be contributing to cognitive difficulties. Patient demonstrates good metacognitive awareness and working memory as strengths. Plan: - Consider discussing alternative ADHD medications with prescribing provider if current Adderall is not providing optimal symptom control - Utilize executive functioning skills handouts provided, including assessment questionnaire to identify specific strengths and weaknesses - Implement time-based task management (e.g., 20-30 minute work blocks with timer) rather than completion-based goals to prevent burnout - Practice response inhibition techniques, including writing down thoughts to address later when feeling impulse to interrupt - Consider My Mouth is a [place] book for patient and children to address impulsivity Work performance and motivation issues Assessment: Patient reports significant decline in work performance and motivation since last session, describing minimal work output due to stress and personal life disruptions. He acknowledges not working as hard as previously and feeling overwhelmed by daily fires rather than maintaining consistent routines. 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 Plan: - Implement structured work routine with Tuesday- field visits and Tuesday for administrative tasks at home or coffee shop - Trial new [employer] software with larger accounts to reduce administrative burden - Focus on setting personal goals rather than solely company metrics - Utilize ADHD motivational strategies handout to make routine tasks more engaging Sleep disorders Assessment: Patient scheduled for sleep study due to severe snoring that wakes household members and laboratory results suggesting possible sleep-related issues including low blood oxygen levels. He reports chronic fatigue, difficulty with mornings, and not being a morning person. Has 99% deviated septum blockage contributing to sleep issues. Father required CPAP therapy. Sleep disturbances likely contributing to ADHD symptoms and executive functioning deficits. Plan: - Complete scheduled sleep study - ENT consultation completed for deviated septum (surgical correction involving nasal reconstruction discussed for 2025) - If CPAP therapy recommended but not tolerated, discuss alternative treatment options with sleep specialist - Consider wisdom tooth extraction in 2025 as part of comprehensive medical care plan Divorce-related financial and legal stress Assessment: Patient experiencing significant financial strain paying approximately $3000 monthly in child support and maintenance while accumulating credit card debt and living in substandard housing. Ex- has not removed him from mortgage despite non-payment affecting his credit score. He is representing himself in court to request reduction or elimination of $2500 monthly maintenance payments, arguing financial hardship and ex-'s choice to pursue doctorate rather than work. Court date scheduled for tomorrow with concerns about potential negative outcome requiring him to continue payments until end of 2025. Plan: - Attend court hearing tomorrow to request maintenance reduction and mortgage removal - Scan and email financial documentation to ex- before court date (utilize library scanning services if available) - Present evidence of financial hardship, ex-'s unemployment by choice, and presence of other adults in household - If unsuccessful, develop coping strategies for managing financial stress until maintenance ends in 202507/31/2025 Problems in relationship with spouse or partner (ICD-10 - Z63.0) Co-parenting communication difficulties Assessment: Patient reports significant ongoing stress related to poor communication with his ex- regarding custody arrangements and child exchanges. Ex- has blocked him on almost all communication platforms, requiring him to communicate through their son. Patient describes having to engage in dual planning due to last-minute communication from ex-, including a recent incident where she waited 45 minutes before pickup to confirm timing. Patient reports ex- displays hostile behavior during exchanges, including refusing to allow patient to pet the family dog and insisting on police station meetups for child exchanges. These communication barriers are creating substantial stress and difficulty in managing his parenting responsibilities. Plan: - Patient considering returning to court to address communication issues with ex- - Continue discussing co-parenting strategies and boundary setting in future sessions Lack of emotional support system Assessment: Patient reports feeling unable to express emotions or seek support from the women in his immediate support system, including his mother, sister, ex-, and ex-girlfriend Ghada. Patient describes a pattern where expressing any emotions to women in his life results in them becoming uncomfortable or withdrawing support. Recent incident with mother involved her criticizing patient for complaining about everything and suggesting his communication style contributes to relationship problems. Patient identifies his father as his primary emotional support person and feels he lacks a safe outlet for emotional expression. Patient recognizes this leads to bottling up emotions, which he acknowledges is unhealthy and may contribute to eventual emotional explosions. Plan: - Patient expressed interest in joining a men's support group for post-divorce issues or being a single father - Continue exploring healthy outlets for emotional expression in therapy - Discuss strategies for building appropriate support network co-parenting planning disputes Assessment: Patient attended 20-week ultrasound with ex-girlfriend Ghada, which showed healthy development. Following the appointment, conflicts arose regarding co-parenting arrangements for the expected child. Ghada expects patient to contribute financially to baby shower and nursery items for her home while maintaining they will be co-parenting rather than reuniting as a couple. Patient created a preliminary co-parenting plan using [employer] covering ages 0-12 months, but Ghada disagreed with the proposal, particularly regarding bottle feeding and overnight visits. Patient reports Ghada uses manipulative language suggesting he is not showing up as a father when he refuses to pay for items for her home, which he interprets as attempts to shame him into compliance. Plan: - Patient will maintain firm boundaries regarding financial responsibilities for separate households - Continue developing formal co-parenting plan for expected child - Further discussion of co-parenting strategies planned for next session Rental property management stress Assessment: Patient reports significant stress from preparing rental property for new tenant who has cancer. Communication issues arose when tenant requested early move-in, leading to misunderstanding about timing and scope of move. Patient worked until 4 AM Tuesday night with only 4 hours of sleep, dealing with electrical issues and other property preparations. Patient successfully set boundaries with tenant regarding move-in timeline despite tenant's initial pushback. Patient believes the physical and emotional stress from this situation may have contributed to current respiratory illness. Plan: - Complete work on rental property to decrease stress Family support difficulties Assessment: Patient reports feeling that his children are viewed as a burden by family members, particularly his sister. When requesting childcare assistance for rental property work, sister was non-committal in responses, leading patient to feel frustrated with lack of clear communication. Patient offered reciprocal childcare but still felt his requests were treated as burdensome. This pattern contributes to patient becoming hyper independent and avoiding asking for help. Patient's mother ultimately provided childcare support, but later criticized patient for complaining about multiple life stressors. Plan: - Follow up discussion with mom about communication preferences - Continue to expand support system 08/13/2025 Major depressive disorder, recurrent, mild (ICD-10 - F33.0) Organizational difficulties with ADD Assessment: Patient reports chronic struggles with organization affecting multiple life domains including his car, home, and work materials. He describes a cyclical pattern where he maintains organization for 1-2 weeks before reverting to disorganized states. Contributing factors include multiple responsibilities (rental property tools, children's items, baseball coaching equipment, work materials), time constraints, and lack of consistent routines. He reports managing energy rather than time, experiencing dopamine highs from completing tasks followed by crashes. Patient acknowledges fear of missing out leading to taking on multiple projects before completing others. The disorganization creates ongoing stress and affects other life areas, contributing to feelings of being overwhelmed and constantly behind. Plan: - Implement don't put it down, put it away strategy to prevent accumulation of items - Consider delegation options including hiring cleaning services or professional organizers - Explore use of timers for consistency and structure - Focus on simple starting points like making bed daily as foundation for broader organizational habits Relationship boundary issues Assessment: Patient reports ongoing difficulties with criticism and judgment from close relationships, particularly with ex-partner Ghada. He describes a pattern of feeling tested and provoked in romantic relationships, noting similar dynamics with both current ex-partner and ex-. Patient experiences defensiveness when criticized and struggles with setting appropriate boundaries. He reports feeling constantly judged and criticized for not meeting others' expectations, leading to relationship strain. Patient recognizes need for clearer communication about relationship status with Ghada, as she acts as if nothing happened despite their separation. Plan: - Establish clear boundaries regarding relationship status with Ghada during upcoming vacation - Practice responding to criticism with phrases like I appreciate the feedback, but I think there's a better way to do it - Focus vacation on personal time and self-care rather than relationship dynamics - Maintain clear communication about co-parenting focus rather than romantic relationship Co-parenting and custody concerns Assessment: Patient reports concerning incident where ex-'s power was disconnected, leaving children without food or heat. Child reported eating old bologna sandwich due to lack of functioning appliances. Patient appropriately intervened by not leaving child in unsafe environment and offering mcc. Ex- accused patient of kidnapping despite unsafe conditions. Patient has documented the incident per legal librarian advice and is concerned about children's welfare during his planned vacation. Plan: - Document power outage incident and unsafe living conditions as advised by legal librarian - Offer first right of refusal for childcare during vacation per custody agreement - Monitor children's living situation and report to authorities if power remains off during next custody exchange - Consider therapy referral for children given exposure to unstable living conditions 07/09/2025 Problems in relationship with spouse or partner (ICD-10 - Z63.0) Relationship Stress Assessment: Darius reports ongoing relationship difficulties with his girlfriend, particularly surrounding co-parenting issues and emotional regulation. He describes feeling unsafe in the relationship, often worrying about being in trouble. A recent incident involving comforting his 9-year-old daughter led to conflict with his girlfriend, who subsequently blocked him from attending an OB appointment. Darius expresses concern about the impact of this stress on his overall well-being and ability to function in various life roles. The pattern of intense positive and negative periods in the relationship suggests potential emotional instability or difficulty with conflict resolution. Plan: - Explore healthy relationship dynamics and boundary-setting strategies - Discuss options for addressing recurring relationship conflicts, including potential couples therapy - Encourage continued use of emotional regulation techniques learned in previous sessions - Consider implementing a worry time technique to manage anxiety related to relationship issues Anxiety and Emotional Regulation Assessment: Darius reports ongoing high anxiety that impacts various aspects of his life, including work performance and personal relationships. He has been utilizing emotional regulation techniques learned in therapy, including ice cube grounding and deep breathing exercises. Darius also mentions finding a book on resetting the nervous system helpful. He is currently taking fluoxetine (SSRI) but feels it may not be adequately addressing his anxiety symptoms. Darius demonstrates insight into his anxiety patterns and is actively seeking ways to manage his symptoms. Plan: - Continue practicing emotional regulation techniques, including TIP skills and Kris mind concept from DBT - Encourage regular exercise and physical activity as a means of anxiety management - Discuss potential medication adjustments or alternatives with prescribing physician - Introduce defusion techniques, such as the movie theater visualization - Reinforce the importance of self-care and setting boundaries to manage anxiety in various life roles Time Management and ADHD Symptoms Assessment: Darius continues to struggle with time management and task completion, which he attributes to feeling overwhelmed and possibly related to ADHD symptoms. He reports difficulty adhering to previously discussed time management strategies, such as pacing himself and using timers. Darius also mentions challenges with sleep patterns and morning routines, which may be exacerbating his time management issues. Plan: - Revisit and modify time management strategies to better suit Darius's needs and lifestyle - Explore ADHD-specific coping strategies and organizational tools - Discuss establishing a consistent sleep schedule and morning routine - Encourage Darius to start with small, achievable goals in implementing new time management techniques 07/23/2025 Major depressive disorder, recurrent, mild (ICD-10 - F33.0) Relationship dissolution and boundary setting Assessment: Darius reports significant improvement in emotional well-being following Ghada's departure from his home, describing feeling more free and no longer walking on eggshells. He identifies a pattern of compromising his self-worth and identity in the relationship, noting that constant criticism and lack of accountability from Ghada led to self-doubt about his parenting and life decisions. Darius recognizes narcissistic traits in Ghada's behavior patterns, including lack of accountability, emotional manipulation, silent treatment, and controlling behaviors. He demonstrates increased self-awareness regarding his tendency to tolerate unhealthy relationship dynamics and expresses determination to maintain firmer boundaries. Darius sent a comprehensive text message to Ghada outlining his concerns about accountability, respect, and communication patterns, which provided him emotional closure regardless of her response. He reports feeling strong enough to reject unacceptable behaviors and is questioning how to identify healthier relationship patterns in the future. Plan: - Continue therapy focused on identifying red flags in relationships and maintaining healthy boundaries - Provide handout on how to identify green flags in others - Explore shared values as foundation for future relationships, particularly regarding respect for his role as father and positive interactions with his children - Work on recognizing trauma responses that may manifest as controlling behaviors in potential partners Co-parenting difficulties with ex- Assessment: Darius reports ongoing challenges with his ex-'s chronic lateness and unreliability, which is negatively impacting his 9-year-old daughter Kelly. Recent incident involved ex- being 40 minutes late to picker machine operator Kelly for a planned activity, causing significant distress to the child. Kelly also expressed frustration about her mother's boyfriend's constant presence during their time together, limiting one-on-one mother-daughter interactions. Darius recognizes the need to parent coach his children on communicating their needs to their mother while avoiding speaking negatively about her. He acknowledges the cumulative stress on his children from multiple life transitions including divorce, new relationships, and upcoming half-sibling. Plan: - Practice role-playing exercises with Kelly to help her communicate needs to her mother in calm, non-attacking manner - Teach Kelly self-soothing techniques for managing disappointment when mother is dismissive of her concerns - Continue coaching children on emotional regulation and healthy communication strategies Improved parent-child relationship with daughter Assessment: Darius reports significant improvement in his relationship with 9-year-old daughter Kelly since Ghada's departure. He describes better connection and understanding of Kelly's needs, particularly regarding sleep issues. Darius now feels comfortable allowing Kelly to seek comfort in his room during nighttime awakenings, recognizing this as normal childhood behavior. Both his 8-year-old daughter Naheed and son validated his perception that Ghada complains about everything, providing external confirmation of the relationship dynamics he experienced. Plan: - Continue fostering improved parent-child connection and understanding - Maintain supportive approach to Kelly's sleep-related comfort-seeking behaviors 07/16/2025 Attention-defici t hyperactivity disorder, predominantly inattentive type (ICD-10 - F90.0) Previously diagnosed Emotional dysregulation Assessment: Patient reports significant improvement in emotional regulation since beginning treatment, identifying this as his biggest issue. He has a history of jealousy problems and difficulty controlling emotions in relationships, which has been a pattern across past relationships including his marriage. He describes episodes where overwhelming thoughts require him to lie down due to feeling depressed. Patient demonstrates insight into learned patterns from parents and expresses concern about modeling these behaviors for his children, who witnessed ugly things during his divorce when stability was disrupted. Plan: - Continue current therapeutic interventions for emotional regulation - Patient to write down and bring in any thoughts he questions as realistic for discussion in session Relationship difficulties Assessment: Patient is experiencing significant relationship distress with girlfriend Ghada, who has moved out citing his home as not being a calm environment and is not communicating with him. She prevented him from attending a recent baby appointment after becoming upset that his daughter came down at night and he fell asleep while getting her back to sleep. Patient's mother has expressed concern that this relationship is negatively impacting his self-esteem and confidence. Patient describes Ghada as having mixed attachment patterns - sometimes needing constant contact but avoiding problems, especially when at fault, potentially disorganized attachment. Patient appears to have secure attachment from being raised by loving parents. Plan: - Continue exploring relationship dynamics and attachment patterns in therapy Low self-esteem Assessment: Patient reports struggling with self-worth tied to relationships, experiencing an identity crisis after divorce when he lost his identity as a with children in a nuclear family structure. He is the first in his family to divorce, having grown up with parents who stayed together until father's . Patient expresses worry that something's wrong with me and questions his ability at long-term relationships since he couldn't keep a marriage together. He experiences particular difficulty when alone without his children. Previous therapy addressed trust and jealousy issues related to his divorce, but these concerns have resurfaced. Plan: - Continue addressing cognitive distortions related to self-worth and relationship capabilities - Explore challenging negative thought patterns when they arise ADHD management Assessment: Patient has been successfully implementing a 60-minute focused work strategy, though he reports losing focus on subsequent attempts and has adapted by working in 25-minute intervals with 5-minute breaks. He finds manual labor therapeutic as it keeps him focused on one task at a time. Patient acknowledges that having ADHD affects his perception of what is realistic versus unrealistic expectations. Plan: - Continue 60-minute time-based work strategy with flexibility to adjust to 25-minute intervals as needed - Encourage pacing based on time rather than tasks - Continue once to twice daily implementation of focused work periods 06/24/2025 Attention-defici t hyperactivity disorder, predominantly inattentive type (ICD-10 - F90.0) Previously diagnosed Emotional dysregulation and anger management Assessment: Darius reports living in a prolonged state of [id number]-[id number], struggling to regulate between stress and calm, particularly in relationships. He acknowledges taking out stress on those closest to him, which has affected his past marriage and current relationships. Darius's difficulty in managing stress and emotions appears to be impacting multiple areas of his life, including parenting and romantic relationships. Plan: - Implement TIP (Temperature, Intense exercise, Paced breathing, Paired muscle relaxation) technique to shift from buarr-ye-baxriv to ezhd-bak-aysebh state - Encourage use of the dive reflex (holding breath with cold stimulus) to slow heart rate and blood pressure - Explore possibility of joining a bicycle club for consistent, intense physical activity - Practice grounding techniques: - 5-4-3-2-1 method using all five senses - Mental exercises (e.g., counting backwards, spelling name backwards) - Body awareness exercises - Physical grounding (e.g., walking barefoot on grass) - Utilize laughter as a relaxation technique Time management and task overwhelm (possibly related to ADHD) Assessment: Darius reports significant difficulties with time management, often taking on more tasks than he can handle, leading to feelings of being overwhelmed and burnt out. He struggles with maintaining schedules and completing basic tasks, such as cleaning his car. Darius mentions a previous ADD diagnosis and notes that medication initially helped. His current symptoms, including difficulty initiating tasks and managing multiple responsibilities, are consistent with executive function challenges often associated with ADHD. These difficulties are impacting his work, personal life, and ability to care for his children effectively. Plan: - Implement pacing technique: 60 minutes of work followed by 10-15 minute breaks, with longer breaks after four cycles - Encourage use of timers to manage work periods and breaks - Recommend planning by time allocation rather than task completion to reduce overwhelm - Suggest using a random number generator to select tasks from a list to overcome decision paralysis - Advise setting phone to Do Not Disturb mode during focused work periods, with exceptions for emergency contacts - Start with scheduling two focused work periods per day (one morning, one afternoon) and gradually increase as tolerated - Explore the use of a calendar system for improved time management and task organization Relationship and living situation adjustment Assessment: Darius reports recent changes in his living situation, with his girlfriend deciding to move out due to the chaotic environment of living together with three children. They plan to continue dating while living separately, hoping this step back will allow them to work on individual issues. This adjustment reflects ongoing challenges in Darius's interpersonal relationships, likely influenced by his emotional regulation difficulties and time management struggles. Plan: - Support Darius in adapting to the new living arrangement and relationship dynamic - Encourage open communication with girlfriend about expectations and boundaries in the new situation - Explore strategies for maintaining connection while living separately (e.g., scheduled date nights, regular check-ins) - Continue to address underlying emotional regulation and time management issues to improve relationship functioning 06/10/2025 Attention-defici t hyperactivity disorder, predominantly inattentive type (ICD-10 - F90.0) Previously diagnosed Relationship Conflict Assessment: Darius reports ongoing conflict with his girlfriend, Ghada, primarily centered around his children's behavior and her expectations for change. The relationship demonstrates a pattern of instability over the past 1.5-2 years, with periods of harmony followed by threats of separation. Ghada's has intensified the conflict, as she expresses concerns about exposing a to the perceived chaos of Darius's children. Darius feels his girlfriend's expectations may be unrealistic and her approach to addressing issues is often critical and threatening. This situation is causing significant stress and contributing to Darius's feelings of being overwhelmed. Plan: - Explore setting healthy boundaries within the relationship - Discuss strategies for effective communication with partner about parenting concerns - Consider couples counseling to address relationship issues and prepare for co-parenting Parenting Challenges Assessment: Darius is experiencing some difficulties managing his children's behavior, particularly with his 9-year-old daughter who is exhibiting defiance and anger issues. He has implemented a point system for discipline but is facing criticism from his girlfriend regarding the effectiveness of his parenting approach. Darius's 12-year-old son is also described as forgetful and defiant, with a prescription medication regimen in place for ADHD. Darius expresses a desire to avoid harsh disciplinary tactics, recognizing their potential to increase anxiety in his children. He acknowledges feeling overwhelmed by the multiple demands of parenting and the conflicting expectations from his girlfriend. Plan: - Continue implementing and refining the point system for behavior management - Explore alternative parenting strategies that align with Darius's values and address children's needs - Provide education on age-appropriate behavior and developmental stages - Discuss ways to manage multiple demands and reduce feelings of being overwhelmed Emotional Regulation and Stress Management Assessment: Darius reports feeling frequently overwhelmed, particularly when faced with multiple simultaneous demands from his children, girlfriend, and others. He describes experiencing a sfaip-ah-szwzcw response in these situations, leading to raised voice and increased stress. Darius notes a alejandre contrast between his emotional state during a recent positive experience in [place] and his typical home environment. He has insight into his reactions and recognizes the need for better coping strategies. There is a possibility that his ADHD diagnosis may contribute to his feelings of being overstimulated and overwhelmed. Plan: - Teach and practice stress reduction techniques - Explore strategies for managing overstimulation and multiple demands - Discuss the potential impact of ADHD on emotional regulation and explore coping mechanisms - Encourage identification and cultivation of positive environmental factors Financial Stressors Assessment: Darius is experiencing financial stress related to alimony payments, property sale, and changing income. 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 Darius is anticipating the sale of a property to alleviate some financial pressure, allowing him to pay off his ex-'s loan. He expresses a need to return to court to address the alimony situation. These financial concerns are contributing to his overall stress and feelings of being overwhelmed. Plan: - Assist in prioritizing financial obligations and creating a manageable plan - Provide support in preparing for court appearance regarding alimony adjustment - Explore coping strategies for managing financial stress - Consider referral to financial counseling or legal services if needed 05/29/2025 Attention-defici t hyperactivity disorder, predominantly inattentive type (ICD-10 - F90.0) Previously diagnosed Anxiety Assessment: Patient reports ongoing anxiety symptoms, describing them as really bad and feeling it physically in his body. He finds it destabilizing. Previous coping mechanisms like sports are no longer part of his routine. Patient has attempted breathing exercises, which help prevent escalation but do not fully alleviate anxiety. Physical exercise, specifically running on a treadmill, was reported as helpful in managing acute anxiety triggered by a recent encounter with his girlfriend. Client was also able to identify his mom, aunt, and a friend as support during this time. Plan: - Continue practicing breathing exercises for anxiety management - Encourage regular physical exercise, particularly cardiovascular activities like running, to manage anxiety and burn off excess adrenaline - Follow up with nurse practitioner tomorrow to discuss medication options Unresolved grief Assessment: Patient expresses need to address unresolved grief over his father's . He reports not having properly grieved due to focusing on comforting others and helping his mother with logistics. The recent anniversary of his father's has brought these feelings to the forefront. Patient identifies his father as a trusted confidant, and his absence is acutely felt during current life stressors. Plan: - Provide information on local grief support groups: - [facility]: offers individual and group therapy specifically for grief - [facility]: another organization offering grief support - Encourage patient to engage with grief support resources Relationship difficulties Assessment: Patient describes his current relationship with his girlfriend, who is with their child, as toxic. He reports constant criticism from her and feeling blamed for all conflicts. Recent separation occurred when girlfriend moved out for nearly two weeks. Patient expresses concern about potential personality disorder in his girlfriend but is unsure if he might be the source of issues. He reports walking on eggshells to avoid upsetting her and mentions her threats to leave if his behavior doesn't change. Patient has a history of divorce and is concerned about the impact on his children. Plan: - Encourage patient to discuss with girlfriend about her staying elsewhere temporarily to create space - Provide supportive counseling on co-parenting strategies and setting boundaries in relationships - Continue to explore and process relationship dynamics in future sessions 05/29/2025 Suicidal ideations (ICD-10 - R45.851) Anxiety Assessment: Patient reports ongoing anxiety symptoms, describing them as really bad and feeling it physically in his body. He finds it destabilizing. Previous coping mechanisms like sports are no longer part of his routine. Patient has attempted breathing exercises, which help prevent escalation but do not fully alleviate anxiety. Physical exercise, specifically running on a treadmill, was reported as helpful in managing acute anxiety triggered by a recent encounter with his girlfriend. Client was also able to identify his mom, aunt, and a friend as support during this time. Plan: - Continue practicing breathing exercises for anxiety management - Encourage regular physical exercise, particularly cardiovascular activities like running, to manage anxiety and burn off excess adrenaline - Follow up with nurse practitioner tomorrow to discuss medication options Unresolved grief Assessment: Patient expresses need to address unresolved grief over his father's . He reports not having properly grieved due to focusing on comforting others and helping his mother with logistics. The recent anniversary of his father's has brought these feelings to the forefront. Patient identifies his father as a trusted confidant, and his absence is acutely felt during current life stressors. Plan: - Provide information on local grief support groups: - [facility]: offers individual and group therapy specifically for grief - [facility]: another organization offering grief support - Encourage patient to engage with grief support resources Relationship difficulties Assessment: Patient describes his current relationship with his girlfriend, who is with their child, as toxic. He reports constant criticism from her and feeling blamed for all conflicts. Recent separation occurred when girlfriend moved out for nearly two weeks. Patient expresses concern about potential personality disorder in his girlfriend but is unsure if he might be the source of issues. He reports walking on eggshells to avoid upsetting her and mentions her threats to leave if his behavior doesn't change. Patient has a history of divorce and is concerned about the impact on his children. Plan: - Encourage patient to discuss with girlfriend about her staying elsewhere temporarily to create space - Provide supportive counseling on co-parenting strategies and setting boundaries in relationships - Continue to explore and process relationship dynamics in future sessions 06/10/2025 Problems in relationship with spouse or partner (ICD-10 - Z63.0) Relationship Conflict Assessment: Darius reports ongoing conflict with his girlfriend, Ghada, primarily centered around his children's behavior and her expectations for change. The relationship demonstrates a pattern of instability over the past 1.5-2 years, with periods of harmony followed by threats of separation. Ghada's has intensified the conflict, as she expresses concerns about exposing a to the perceived chaos of Darius's children. Darius feels his girlfriend's expectations may be unrealistic and her approach to addressing issues is often critical and threatening. This situation is causing significant stress and contributing to Darius's feelings of being overwhelmed. Plan: - Explore setting healthy boundaries within the relationship - Discuss strategies for effective communication with partner about parenting concerns - Consider couples counseling to address relationship issues and prepare for co-parenting Parenting Challenges Assessment: Darius is experiencing some difficulties managing his children's behavior, particularly with his 9-year-old daughter who is exhibiting defiance and anger issues. He has implemented a point system for discipline but is facing criticism from his girlfriend regarding the effectiveness of his parenting approach. Darius's 12-year-old son is also described as forgetful and defiant, with a prescription medication regimen in place for ADHD. Darius expresses a desire to avoid harsh disciplinary tactics, recognizing their potential to increase anxiety in his children. He acknowledges feeling overwhelmed by the multiple demands of parenting and the conflicting expectations from his girlfriend. Plan: - Continue implementing and refining the point system for behavior management - Explore alternative parenting strategies that align with Darius's values and address children's needs - Provide education on age-appropriate behavior and developmental stages - Discuss ways to manage multiple demands and reduce feelings of being overwhelmed Emotional Regulation and Stress Management Assessment: Darius reports feeling frequently overwhelmed, particularly when faced with multiple simultaneous demands from his children, girlfriend, and others. He describes experiencing a lrrlp-nn-wktuko response in these situations, leading to raised voice and increased stress. Darius notes a alejandre contrast between his emotional state during a recent positive experience in [place] and his typical home environment. He has insight into his reactions and recognizes the need for better coping strategies. There is a possibility that his ADHD diagnosis may contribute to his feelings of being overstimulated and overwhelmed. Plan: - Teach and practice stress reduction techniques - Explore strategies for managing overstimulation and multiple demands - Discuss the potential impact of ADHD on emotional regulation and explore coping mechanisms - Encourage identification and cultivation of positive environmental factors Financial Stressors Assessment: Darius is experiencing financial stress related to alimony payments, property sale, and changing income. 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 Darius is anticipating the sale of a property to alleviate some financial pressure, allowing him to pay off his ex-'s loan. He expresses a need to return to court to address the alimony situation. These financial concerns are contributing to his overall stress and feelings of being overwhelmed. Plan: - Assist in prioritizing financial obligations and creating a manageable plan - Provide support in preparing for court appearance regarding alimony adjustment - Explore coping strategies for managing financial stress - Consider referral to financial counseling or legal services if needed 06/24/2025 Problems in relationship with spouse or partner (ICD-10 - Z63.0) Emotional dysregulation and anger management Assessment: Darius reports living in a prolonged state of oyofv-ba-[id number], struggling to regulate between stress and calm, particularly in relationships. He acknowledges taking out stress on those closest to him, which has affected his past marriage and current relationships. Darius's difficulty in managing stress and emotions appears to be impacting multiple areas of his life, including parenting and romantic relationships. Plan: - Implement TIP (Temperature, Intense exercise, Paced breathing, Paired muscle relaxation) technique to shift from lbjpz-ug-lkhxfl to jrbu-phf-bjnatq state - Encourage use of the dive reflex (holding breath with cold stimulus) to slow heart rate and blood pressure - Explore possibility of joining a bicycle club for consistent, intense physical activity - Practice grounding techniques: - 5-4-3-2-1 method using all five senses - Mental exercises (e.g., counting backwards, spelling name backwards) - Body awareness exercises - Physical grounding (e.g., walking barefoot on grass) - Utilize laughter as a relaxation technique Time management and task overwhelm (possibly related to ADHD) Assessment: Darius reports significant difficulties with time management, often taking on more tasks than he can handle, leading to feelings of being overwhelmed and burnt out. He struggles with maintaining schedules and completing basic tasks, such as cleaning his car. Darius mentions a previous ADD diagnosis and notes that medication initially helped. His current symptoms, including difficulty initiating tasks and managing multiple responsibilities, are consistent with executive function challenges often associated with ADHD. These difficulties are impacting his work, personal life, and ability to care for his children effectively. Plan: - Implement pacing technique: 60 minutes of work followed by 10-15 minute breaks, with longer breaks after four cycles - Encourage use of timers to manage work periods and breaks - Recommend planning by time allocation rather than task completion to reduce overwhelm - Suggest using a random number generator to select tasks from a list to overcome decision paralysis - Advise setting phone to Do Not Disturb mode during focused work periods, with exceptions for emergency contacts - Start with scheduling two focused work periods per day (one morning, one afternoon) and gradually increase as tolerated - Explore the use of a calendar system for improved time management and task organization Relationship and living situation adjustment Assessment: Darius reports recent changes in his living situation, with his girlfriend deciding to move out due to the chaotic environment of living together with three children. They plan to continue dating while living separately, hoping this step back will allow them to work on individual issues. This adjustment reflects ongoing challenges in Darius's interpersonal relationships, likely influenced by his emotional regulation difficulties and time management struggles. Plan: - Support Darius in adapting to the new living arrangement and relationship dynamic - Encourage open communication with girlfriend about expectations and boundaries in the new situation - Explore strategies for maintaining connection while living separately (e.g., scheduled date nights, regular check-ins) - Continue to address underlying emotional regulation and time management issues to improve relationship functioning 07/16/2025 Problems in relationship with spouse or partner (ICD-10 - Z63.0) Emotional dysregulation Assessment: Patient reports significant improvement in emotional regulation since beginning treatment, identifying this as his biggest issue. He has a history of jealousy problems and difficulty controlling emotions in relationships, which has been a pattern across past relationships including his marriage. He describes episodes where overwhelming thoughts require him to lie down due to feeling depressed. Patient demonstrates insight into learned patterns from parents and expresses concern about modeling these behaviors for his children, who witnessed ugly things during his divorce when stability was disrupted. Plan: - Continue current therapeutic interventions for emotional regulation - Patient to write down and bring in any thoughts he questions as realistic for discussion in session Relationship difficulties Assessment: Patient is experiencing significant relationship distress with girlfriend Ghada, who has moved out citing his home as not being a calm environment and is not communicating with him. She prevented him from attending a recent baby appointment after becoming upset that his daughter came down at night and he fell asleep while getting her back to sleep. Patient's mother has expressed concern that this relationship is negatively impacting his self-esteem and confidence. Patient describes Ghada as having mixed attachment patterns - sometimes needing constant contact but avoiding problems, especially when at fault, potentially disorganized attachment. Patient appears to have secure attachment from being raised by loving parents. Plan: - Continue exploring relationship dynamics and attachment patterns in therapy Low self-esteem Assessment: Patient reports struggling with self-worth tied to relationships, experiencing an identity crisis after divorce when he lost his identity as a with children in a nuclear family structure. He is the first in his family to divorce, having grown up with parents who stayed together until father's . Patient expresses worry that something's wrong with me and questions his ability at long-term relationships since he couldn't keep a marriage together. He experiences particular difficulty when alone without his children. Previous therapy addressed trust and jealousy issues related to his divorce, but these concerns have resurfaced. Plan: - Continue addressing cognitive distortions related to self-worth and relationship capabilities - Explore challenging negative thought patterns when they arise ADHD management Assessment: Patient has been successfully implementing a 60-minute focused work strategy, though he reports losing focus on subsequent attempts and has adapted by working in 25-minute intervals with 5-minute breaks. He finds manual labor therapeutic as it keeps him focused on one task at a time. Patient acknowledges that having ADHD affects his perception of what is realistic versus unrealistic expectations. Plan: - Continue 60-minute time-based work strategy with flexibility to adjust to 25-minute intervals as needed - Encourage pacing based on time rather than tasks - Continue once to twice daily implementation of focused work periods 07/09/2025 Attention-defici t hyperactivity disorder, predominantly inattentive type (ICD-10 - F90.0) Previously diagnosed Relationship Stress Assessment: Darius reports ongoing relationship difficulties with his girlfriend, particularly surrounding co-parenting issues and emotional regulation. He describes feeling unsafe in the relationship, often worrying about being in trouble. A recent incident involving comforting his 9-year-old daughter led to conflict with his girlfriend, who subsequently blocked him from attending an OB appointment. Darius expresses concern about the impact of this stress on his overall well-being and ability to function in various life roles. The pattern of intense positive and negative periods in the relationship suggests potential emotional instability or difficulty with conflict resolution. Plan: - Explore healthy relationship dynamics and boundary-setting strategies - Discuss options for addressing recurring relationship conflicts, including potential couples therapy - Encourage continued use of emotional regulation techniques learned in previous sessions - Consider implementing a worry time technique to manage anxiety related to relationship issues Anxiety and Emotional Regulation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
--- OUTSIDE RECORDS SUMMARY | 2025-09-19 09:14 | XMS_ITS | Clinical Summary ---
Author Organization [facility] Address [address] [place] [id number] Care Team Providers Care Stave Grader Name Role Phone Unavailable Primary Care Provider Unavailabl e Allergies No known active allergies Medications sertraline (ZOLOFT) 100 mg tabletIndication s:Generalized anxiety disorder TAKE 1 TABLET BY MOUTH EVERY DAY 30 tablet 3 01/15/2019 Active rosuvastatin (CRESTOR) 20 mg tabletIndication s:Hyperlipidemia LDL goal <130,Family history of premature CAD TAKE 1 TABLET BY MOUTH ONCE DAILY 90 tablet 2 06/18/2019 Active Active Problems Problem Noted Date Diagnosed Date Family history of bicuspid aortic valve 01/25/20 19 Family history of premature CAD 01/24/2019 Lipid screening 01/24/2019 Anxiety 01/16/2018 Irritability and anger 01/16/2018 Hyperlipidemia LDL goal <130 01/16/2018 Immunizations Immunization Administration Dates Next Due Influenza, Quadrivalent, Spl it, Preservative Free, Intramuscular 09/20/2018 Medical History Medical History Date Comments Hyperlipidemia Family History Medical History Relation Name Comments Coronary artery disease Father Hyperlipidemia Father Hypertension Father Peripheral vascular disease Father Relation Name Status Comments Father Social History Tobacco Use Types Packs/Day Years Used Date Smoking Tobacco: Former Smokeless Tobacco: Never Alcohol Use Standard Drinks/Week Comments Yes 0 (1 standard drink = 0.6 oz pur e alcohol) occasionally Personal Safety Answer Date Recorded Getting School Help Needed Not on file 12/17 Sex and Gender Information Value Date Recorded Sex Assigned at Not on file Legal Sex Male 4:29 PM CDT Gender Identity Not on file Sexual Orientation Not on file Last Filed Vital Signs Vital Sign Reading Time Taken Comments Blood Pressure 112/55 02/16/2019 3:32 PM CDT Pulse 98 02/16/2019 3:32 PM CDT Temperature 36.7 C (98.1 F) 02/16/2019 3:32 PM CDT Respiratory Rate 18 01/24/2019 10:59 AM CDT Oxygen Saturation 98% 02/16/2019 3:32 PM CDT Inhaled Oxygen Concentration - - Weight 84.8 kg (187 lb) 02/16/2019 3:32 PM CDT Height 180.3 cm (5' 11) 01/24/2019 10:59 AM CDT Body Mass Index 26.08 01/24/2019 10:59 AM CDT Plan of Treatment Not on file Goals Goal Patient Goal Type Associated Problems Recent Progress Patient-Stated? Author CCM Pulmonary HTN Care Plan Chronic Care Management Miles Cortez, RN Insurance [employer] OPEN ACCESS [employer] OPEN ACCESS
--- OUTSIDE RECORDS SUMMARY | 2025-09-19 09:14 | XMS_ITS | Clinical Summary ---
Author Organization [facility] Address [address] [place] [address] Care Team Providers Care Explosives Mixer Operator Name Role Phone None, Physician Primary Care Provider Unavailabl e Source Comments [facility],non-owned Affiliates and Associated Physician Practices is amultiple site organization consisting of ambulatory clinics and hospital sitesin [place], [place], [place] and [place]. This disclosure is being madepursuant to the Care Everywhere program and may not contain all information available regarding this patient. Last updated 18.[facility] Allergies No known active allergies Medications * Be aware that medications may not be up to date on this document. Alwaysverify current medications with the patient. Rosuvastatin Calcium (CRESTOR PO) Active predniSONE (DELTASONE) 10 MG tabletIndication s:Upper respiratory tract infection, unspecified type 5 tab PO QD on day 1, then 4 tab po QD day 2, then 3 tab PO QD day 3, then 2 tab PO QD day 4, then 1 tab PO QD day 5. Take with food. 15 tablet 8 Active Additional Information Patient not taking.Reported on 10/16/2024 FLUoxetine (PROzac) 40 MG capsule Take 1 (one) capsule by mouth once daily 4 Active amphetamine-dext roamphetamine XR 24hr (Adderall XR) 10 MG capsule Take 1 (one) capsule by mouth once daily 4 Active Active Problems No known active problems Family History Relation Name Status Comments Father Alive Mother Alive Social History Tobacco Use Types Packs/Day Years Used Date Smoking Tobacco: Former Smokeless Tobacco: Never Tobacco Cessation:Counseling Given: Not Answered Comments:social smoker in college Sex and Gender Information Value Date Recorded Sex Assigned at Not on file Legal Sex Male 9:16 AM CDT Gender Identity Not on file Sexual Orientation Not on file Last Filed Vital Signs Vital Sign Reading Time Taken Comments Blood Pressure 126/84 02/07/2018 6:43 PM CDT Pulse 71 02/07/2018 6:43 PM CDT Temperature 36.8 C (98.3 F) 02/07/2018 6:43 PM CDT Respiratory Rate 16 02/07/2018 6:43 PM CDT Oxygen Saturation 97% 02/07/2018 6:43 PM CDT Inhaled Oxygen Concentration - - Weight 79.4 kg (175 lb) 02/07/2018 6:43 PM CDT Height 180.3 cm (5' 11) 02/07/2018 6:43 PM CDT Body Mass Index 24.41 02/07/2018 6:43 PM CDT Plan of Treatment Upcoming Encounters Date Type Department Care Team (Late st Contact Info) Description 11/12/2025 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 Office Visit [facility] - General Dermatology [address], [facility] [address] [place] [phone] Geno Glynn, [address] [place] [address] Health Maintenance Due Date Last Done Comments HIV SCREENING 2005 HEPATITIS C SCREENING 02/23/2008 DTAP/TDAP/TD VACCINES (1 - Tdap) 2009 HEPATITIS B VACCINE (1 of 3 - 19+ 3-dose series) 2009 HPV VACCINE (1 - 3-dose SCDM series) 2017 DEPRESSION SCREENING 10/03/2024 COVID-19 VACCINE (1 - 2024-2 6 season) 2025 INFLUENZA VACCINE (#1) 2025 09/20/2018 ZOSTER VACCINE (1 of 2) 02/28/2040 HIB VACCINE Aged Out No longer eligi ble based on patient's age to complete this topic MENINGOCOCCAL (Group B) VACC INE SHARED DECISION-MAKING Aged Out No longer eligibl e based on patient's age to complete this topic MENINGOCOCCAL GROUPS A/C/Y/W VACCINE Aged Out No longer eligible b ased on patient's age to complete this topic PNEUMOCOCCAL VACCINE Aged Out No long er eligible based on patient's age to complete this topic Insurance [facility] Care Teams Explosives Mixer Operator Relationship Specialty Start Date End Date None, Physician PCP - General 10/16/24
--- NOTE | 2025-10-14 08:48 | WPDHOMESLEEP ---
Sleep Study - Home Unattended Date of Study: 09/19/25 Ordering Provider: Radha Peter MD Interpreting Provider: Tawnya Salamanca, DO Home Sleep Study Type: Watch PAT Height: 1.8 m Weight: 90.718 kg Body Mass Index: 27.8 Neck Circumference (inches): 17 Hawkins: 7 Reason for Sleep Study Snoring, non-restorative sleep Sleep History The patient is a 35-year-old male that had a sleep study ordered by his primary care physician for evaluation of sleep apnea. The patient occasionally awakens from sleep short of breath. He occasionally awakens at night with heartburn, belching or cough. He constantly snores loudly enough that others complain. He frequently has trouble sleeping when he has a cold. He occasionally wakes up gasping for air throughout the night. He frequently has breathing problems at night observed by himself or others. He rarely sweats excessively at night. He rarely has heart palpitations or irregular heartbeats during the night. He rarely falls asleep during the day but never while driving. He denies cataplexy. He constantly has trouble at school or work due to sleepiness. He frequently feels unable to move while waking up or falling asleep. He rarely experiences vivid dreamlike scenes upon awakening or falling asleep. He rarely feels afraid of going to sleep. He occasionally has nightmares. He occasionally remembers his dreams. He frequently has thoughts racing through his mind. He occasionally feels sad or depressed. He frequently has anxiety. He frequently has muscular tension. He occasionally notices parts of his body jerk. He occasionally kicks during the night. He occasionally has crawling and aching feelings in his legs and occasionally has leg pain during the night. He rarely grinds his teeth during sleep but occasionally awakens with morning jaw pain. He occasionally is bothered by pain during the day but rarely awakened by pain during the night. He occasionally wakes up feeling stiff in the morning. He frequently wakes up with sore or achy muscles. He frequently wakes up with pain in the neck, spine and other joints. He goes to bed between 11:00 p.m. to 12:00 a.m. every night. It takes him 1 hour to fall asleep. He wakes up once throughout the night to urinate is able to fall back asleep anywhere from 30 minutes up to 4 hours. He wakes up between 630-8 a.m. on weekdays and at 9:00 a.m. on the weekends. He typically gets 5-10 hours of sleep per night. He will stay in bed for 2 hours after waking up in the morning. He currently lives with his children for half the weekend his girlfriend for the other half. He denies consuming any caffeinated beverages within 2 hours of bedtime. He denies engaging in physical exercise before bedtime. He will watch television before falling asleep. He denies taking naps in afternoon or the evening. He consumes 2 caffeinated beverages per day. He quit smoking cigarettes 1 month ago. He consumes 1 alcoholic beverage per day. He denies recreational drug use. [facility] Past Medical History Medical History Hyperlipidemia Seasonal allergies Generalized anxiety disorder Family History Family History Father Family history of cardiovascular disease Grandparent Family history of cardiovascular disease Social History Social History Smoking status: Current some day smoker Tobacco type: e-cigarettes/vaping (weekends when he has alcohol) Additional smoking assessment comments: Patient reports smoking when drinking socially. Alcohol intake: current Drinks per week: 4 Alcohol use details: occasionally Substance use: never Substance use type: does not use Lack of Transportation: No Lack of Food: Never True Current Housing: I Have Housing Concerned About Future Housing: No Difficulty Paying Gas/Electric Bills: No Difficulty Paying for Meds: No Currently Unemployed: No Education: Bachelor's Degree Difficulty w/ Childcare or Family Care: No Living arrangements: with family Occupation/Education: occupation Additional occupation/education comments: Pharmaceutical Rep Gender identity (if verbalized by the patient): Male Sexual Orientation (if Verbalized by the Patient): Straight or Heterosexual Agree to blood products: Yes Medications Home Medications ?Medication ?Instructions ?Recorded ?Confirmed ?Type inhalational spacing device #1 ea 07/31/25 09/05/25 Rx (Aerochamber Plus Z Stat spacer) dextroamphetamine-amphetamine ER 10 mg PO DAILY #30 caps 09/17/25 Rx 10 mg 24hr capsule,extend release (Adderall XR) ezetimibe 10 mg tablet (Zetia) 10 mg PO DAILY #90 tabs 09/17/25 Rx fluoxetine 40 mg capsule 40 mg PO DAILY #90 caps 09/17/25 Rx rosuvastatin 40 mg tablet 40 mg PO QHS #90 tabs 09/17/25 Rx Sleep Procedure The sleep study was completed using [employer] a technically adequate device with seven channels: peripheral arterial tone, actigraphy, body position, snore, respiratory movement, pulse oximetry, sleep staging, and heart rate. Prior to using the device, the patient received verbal and written instructions for its application and was provided with the help desk phone number for additional telephonic instruction with 24-hour availability of qualified personnel to answer questions. The study was scored using CMS guidelines. Sleep Architecture The total recording time is 6 hrs, 37 min. The total sleep time is 5 hrs, 56 min. Sleep latency is 17 minutes. REM latency is 132 minutes. The patient had 3 episodes of waking. Sleep architecture shows 16.2% deep sleep, 49.9% light sleep, and (as % Total Sleep Time) showed NREM (Light 49.9%; Deep 16.2%), and a 34.0% stage REM. The patient spent 61.5% of total sleep time in the supine position. Sleep efficiency was 89.67. Respiratory Analysis The overall AHI (pAHI 4%:) is 11.2. The overall AHI (pAHI 3%:) is 13.9. The central AHI is 4.6. The AHI was 11.0 in NREM and 19.4 in REM sleep. The AHI was 18.8 in Supine and 6.2 in Non-supine sleep. Percent of Julio Cesar Johns respirations is 0.0. Oximetry Data The oxygen desaturation index (DEBBIE 4%:) is 7.6. The mean saturation is 94%, and the lowest saturation is 86%. Time spent with saturation < 88% is 0.9 minutes. Snoring Profile Snoring average intensity is 40 dB. The patient snored above 45 decibels for 8.4 minutes, 2.4% of sleep time. Cardiac Profile The average pulse rate is 73 beats per minutes. The lowest pulse rate is 58 bpm. The highest pulse rate reported is 104 bpm. Atrial fibrillation was not detected. Premature beats occur <0.1 per minute. Assessment and Plan Assessment and Plan (1) KARL (obstructive sleep apnea): Code(s): G47.33 - Obstructive sleep apnea (adult) (pediatric) Status: Acute Assessment and Plan: The patient had an overall AHI of 11.2 with desaturation down to 86%. This is consistent with mild sleep apnea. Due to the patient's anxiety, he qualifies for treatment. I recommend that the patient be prescribed AutoPAP 5-15 cm H2O, CPAP mask/filters/tubing and heated humidity. A mandibular advancement device is also an acceptable treatment option. This should be used with all episodes of sleep.? Compliance should be reviewed within 31-90 days of starting therapy for usage greater than 4 hours per night greater than 70% of the nights. The patient should be asked about symptoms such as?excessive daytime sleepiness, quality of sleep, decreased nocturia, increased?mental functioning such as memory, mood, and concentration. Data The data obtained during this sleep study is adequate for interpretation. Certification This sleep study has been reviewed by a board certified sleep medicine physician.
[2025-10-14 15:32] VITALS: BMI 27.8
== END 2025-09-20 11:48 | disposition home or self-care (01) ==
PROVIDERS: PCP Family Medicine; Visit Provider Family Medicine
DX: G47.10 Hypersomnia, unspecified (principal); R40.0 Somnolence; G47.33 Obstructive sleep apnea (adult) (pediatric)
CPT/HCPCS: 95800